=== PATIENT | female | born 1945 | race Caucasian/White ===

== ENCOUNTER → 2020-09-02 16:05 | Outpatient (CLI) | payer MEDICARE, SELFPAY ==
[2020-09-02] MEDS: EPOETIN ALFA-EPBX 40,000 UNIT/ML VIAL 40000 UNIT SUBCUT (15:40)
== END ==
PROVIDERS: Referring Provider Internal Medicine Hematology & Oncology; Visit Provider Internal Medicine Hematology & Oncology
DX: Z51.11 Encounter for antineoplastic chemotherapy (principal); C90.00 Multiple myeloma not having achieved remission; N18.9 Chronic kidney disease, unspecified; D63.1 Anemia in chronic kidney disease; M81.0 Age-related osteoporosis without current pathological fracture
CPT/HCPCS: 80053; 82232; 82784; 83615; 83883; 84155; 84165; 85025; 86334; 96372; 96401; 99204; 99214; J9041; Q5106

== ENCOUNTER → 2020-09-16 12:02 | Outpatient (CLI) | payer MEDICARE, SELFPAY ==
[2020-09-16] MEDS: EPOETIN ALFA-EPBX 40,000 UNIT/ML VIAL 40000 UNIT SUBCUT (12:24)
== END ==
PROVIDERS: Referring Provider Internal Medicine Hematology & Oncology; Visit Provider Internal Medicine Hematology & Oncology
DX: Z51.11 Encounter for antineoplastic chemotherapy (principal); C90.00 Multiple myeloma not having achieved remission; N18.9 Chronic kidney disease, unspecified; D63.1 Anemia in chronic kidney disease
CPT/HCPCS: 96372; 96401; J9041; Q5106

== ENCOUNTER → 2020-10-28 09:35 | Outpatient (CLI) | payer MEDICARE, SELFPAY ==
[2020-10-28] MEDS: EPOETIN ALFA-EPBX 40,000 UNIT/ML VIAL 40000 UNIT SUBCUT (10:02)
== END ==
PROVIDERS: Referring Provider Internal Medicine Hematology & Oncology; Visit Provider Internal Medicine Hematology & Oncology
DX: Z51.11 Encounter for antineoplastic chemotherapy (principal); C90.01 Multiple myeloma in remission; N18.9 Chronic kidney disease, unspecified; D63.1 Anemia in chronic kidney disease; M81.0 Age-related osteoporosis without current pathological fracture
CPT/HCPCS: 96372; 96401; 99214; J9041; Q5106

== ENCOUNTER → 2020-11-11 14:36 | Outpatient (CLI) | payer MEDICARE, SELFPAY ==
[2020-11-11] MEDS: EPOETIN ALFA-EPBX 40,000 UNIT/ML VIAL 40000 UNIT SUBCUT (14:48)
== END ==
PROVIDERS: Referring Provider Internal Medicine Hematology & Oncology; Visit Provider Internal Medicine Hematology & Oncology
DX: Z51.11 Encounter for antineoplastic chemotherapy (principal); C90.01 Multiple myeloma in remission; N18.9 Chronic kidney disease, unspecified; D63.1 Anemia in chronic kidney disease
CPT/HCPCS: 96372; 96401; J9041; Q5106

== ENCOUNTER → 2020-11-25 13:39 | Outpatient (CLI) | payer MEDICARE, SELFPAY ==
[2020-11-25] MEDS: EPOETIN ALFA-EPBX 40,000 UNIT/ML VIAL 40000 UNIT SUBCUT (14:11)
== END ==
PROVIDERS: Visit Provider Internal Medicine Hematology & Oncology
DX: Z51.11 Encounter for antineoplastic chemotherapy (principal); C90.01 Multiple myeloma in remission; N18.9 Chronic kidney disease, unspecified; D63.1 Anemia in chronic kidney disease; M81.0 Age-related osteoporosis without current pathological fracture
CPT/HCPCS: 96372; 96401; 99214; J9041; M1145; Q5106

== ENCOUNTER → 2020-12-09 13:29 | Outpatient (CLI) | payer MEDICARE, SELFPAY ==
[2020-12-09 13:58] VITALS: BP 145/65; PULSE 73; RESP 16; TEMP 36.5; O2SAT 98
== END ==
PROVIDERS: Visit Provider Internal Medicine Hematology & Oncology
DX: C90.01 Multiple myeloma in remission (principal); N18.9 Chronic kidney disease, unspecified; D63.1 Anemia in chronic kidney disease
CPT/HCPCS: 96401

== ENCOUNTER → 2020-12-16 15:30 | Outpatient (CLI) | payer MEDICARE, SELFPAY ==
[2020-12-16] MEDS: COVID-19 VACC #1, MRNA(MOD) 100 MCG/0.5 ML VIAL IM (15:36)
== END ==
PROVIDERS: Visit Provider Internal Medicine
DX: Z23 Encounter for immunization (principal)
CPT/HCPCS: 0011A; 91301

== ENCOUNTER → 2020-12-23 15:06 | Outpatient (CLI) | payer MEDICARE, SELFPAY ==
[2020-12-23] MEDS: EPOETIN ALFA-EPBX 40,000 UNIT/ML VIAL 40000 UNIT SUBCUT (15:54)
== END ==
PROVIDERS: Referring Provider Internal Medicine Hematology & Oncology; Visit Provider Internal Medicine Hematology & Oncology
DX: Z51.11 Encounter for antineoplastic chemotherapy (principal); C90.01 Multiple myeloma in remission; N18.9 Chronic kidney disease, unspecified; D63.1 Anemia in chronic kidney disease; M81.0 Age-related osteoporosis without current pathological fracture
CPT/HCPCS: 96372; 96401; 99214; J9041; Q5106

== ENCOUNTER → 2021-01-06 12:58 | Outpatient (CLI) | payer MEDICARE, SELFPAY ==
[2021-01-06 13:47] VITALS: BP 144/75; PULSE 78; RESP 18; TEMP 37; O2SAT 99
== END ==
PROVIDERS: Referring Provider Internal Medicine Hematology & Oncology; Visit Provider Internal Medicine Hematology & Oncology
DX: C90.01 Multiple myeloma in remission (principal); N18.9 Chronic kidney disease, unspecified; D63.1 Anemia in chronic kidney disease

== ENCOUNTER → 2021-01-13 15:24 | Outpatient (CLI) | payer MEDICARE, SELFPAY ==
[2021-01-13] MEDS: COVID-19 VACC #2, MRNA(MOD) 100 MCG/0.5 ML VIAL IM (15:35)
== END ==
PROVIDERS: Visit Provider Internal Medicine
DX: Z23 Encounter for immunization (principal)
CPT/HCPCS: 0012A; 91301

== ENCOUNTER → 2021-01-19 13:09 | Outpatient (CLI) | payer MEDICARE, SELFPAY ==
[2021-01-19] MEDS: EPOETIN ALFA-EPBX 40,000 UNIT/ML VIAL 40000 UNIT SUBCUT (14:28)
== END ==
PROVIDERS: Referring Provider Internal Medicine Hematology & Oncology; Visit Provider Internal Medicine Hematology & Oncology
DX: Z51.11 Encounter for antineoplastic chemotherapy (principal); C90.01 Multiple myeloma in remission; N18.9 Chronic kidney disease, unspecified; D63.1 Anemia in chronic kidney disease
CPT/HCPCS: 96372; 96401; J9041; Q5106

== ENCOUNTER → 2021-02-02 13:17 | Outpatient (CLI) | payer MEDICARE, SELFPAY ==
[2021-02-02 13:43] VITALS: BP 135/72; PULSE 83; RESP 18; TEMP 37.4; O2SAT 98
[2021-02-02] MEDS: EPOETIN ALFA-EPBX 40,000 UNIT/ML VIAL 40000 UNIT SUBCUT (14:27)
== END ==
PROVIDERS: Referring Provider Internal Medicine Hematology & Oncology; Visit Provider Internal Medicine Hematology & Oncology
DX: Z51.11 Encounter for antineoplastic chemotherapy (principal); C90.01 Multiple myeloma in remission; N18.9 Chronic kidney disease, unspecified; D63.1 Anemia in chronic kidney disease
CPT/HCPCS: 96372; 96401; J9041; Q5106

== ENCOUNTER → 2021-02-14 13:05 | Outpatient (CLI) | payer MEDICARE, SELFPAY ==
[2021-02-14 13:27] VITALS: BP 132/69; PULSE 81; RESP 18; TEMP 36.6; O2SAT 100
[2021-02-14] MEDS: EPOETIN ALFA-EPBX 40,000 UNIT/ML VIAL 40000 UNIT SUBCUT (13:47)
== END ==
PROVIDERS: Referring Provider Internal Medicine Hematology & Oncology; Visit Provider Internal Medicine Hematology & Oncology
DX: Z51.11 Encounter for antineoplastic chemotherapy (principal); C90.01 Multiple myeloma in remission; N18.9 Chronic kidney disease, unspecified; D63.1 Anemia in chronic kidney disease
CPT/HCPCS: 36415; 80053; 82232; 82784; 83615; 83883; 84155; 84165; 85025; 86334; 96372; 96401; J9041; Q5106

== ENCOUNTER 2021-02-17 18:34 | Emergency (ER) | payer MEDICARE, SELFPAY ==
[2021-02-17] VITALS (7 sets, daily range): BP systolic 137–184; BP diastolic 65–85; PULSE 90–123; RESP 14–29; TEMP 36.7; O2SAT 90–100; BMI 51.8
--- NOTE | 2021-02-17 19:22 | ED_ITS ---
HPI - Dental/Oral General Chief complaint: Dental/Oral Stated complaint: states infection, left side face, finished antibio Time Seen by Provider: 02/17/21 19:20 Source: patient Mode of arrival: Ambulatory Limitations: no limitations History of Present Illness HPI Narrative: This is a 76-year-old female comes to the emergency department with complaint of left-sided facial swelling. Patient states she has had an i nfection in her tooth. Patient states that she has had 3 episodes. She was on antibiotics after seeing a urgent care. She saw a dentist who referred her to a specialist and had a temporary tooth placed with plan for root canal on last 1 week ago. Patient states the next day she developed significant swelling of the cheek and face. She states they started her on oral clindamycin. She has continued to have improvement but she still has swelling and several small lumps that she can feel in her cheek. She is on her last doses of medication and will have her very last dose of clindamycin tomorrow. Patient has been afebrile. She states her pain and swelling have been improving as well as the redness. She denies any headaches, no neck pain. No chest pain or shortness of breath. No nausea or vomiting. No other GI or urinary symptoms. Patient arrives today because she was concerned because she is going to run out antibiotics. She does have a history of multiple myeloma she has chronic kidney disease and was anticipated have dialysis. She had a fistula placed but never started dialysis as her renal function improved during her treatment for multiple myeloma. Her home is in [place] and she spends her choi here locally. She does not have a local primary care but does in [place]. Related Data Home Medications Medication Instructions Recorded Confirmed calcitriol 0.25 mcg PO 3XW 09/02/20 12/23/20 lisinopril 2.5 mg PO DAILY 09/02/20 12/23/20 sodium bicarbonate 650 mg PO DAILY 09/02/20 12/23/20 Previous Rx's Medication Instructions Recorded acyclovir 400 mg PO DAILY #90 tab 09/30/20 clindamycin HCl 300 mg PO QID #28 cap 02/17/21 Allergies Allergy/AdvReac Type Severity Reaction Status Date / Time Penicillins Allergy Unknown Verified 11/21/20 10:58 Sulfa (Sulfonamide Allergy Unknown Verified 11/21/20 10:58 Antibiotics) Review of Systems Review of Systems ROS Unobtainable: All systems reviewed & are unremarkable except as noted in HPI and below Patient History Medical History A-V fistula Chronic kidney disease Multiple myeloma Surgical History H/O hernia repair Family History (Updated 09/02/20 @ 23:04 by Bhavna José MD) Other Alzheimer disease Social History Smoking Status: Former smoker alcohol intake: current (Rarely) substance use type: marijuana (Occasionally.) Smoking Status: Former smoker Exam Narrative Exam Narrative: GEN: well nourished, well appearing elderly female, alert and oriented x 3, patient appears to be in mild distress. HEENT: Atraumatic, pupils are equal round reactive to light, extraocular movements are intact, nares are clear, TMs are clear with no fluid, there is no conjunctival pallor. Throat is clear without any exudates, erythema, tonsillar enlargement or uvular deviation, patient does have moderate swelling of the left cheek, some mild erythema in comparison to the right. I am unable to visualize any areas of fluctuance but I am able to palpate some areas of induration in the cheek that are <0.5cm. I am not able to visualize these along the gumline itself. The area surrounding the teeth is not swollen or erythematous. They are nontender to palpation. HEART: Regular rate and rhythm without murmur, clicks, rubs. LUNGS:Lungs clear to auscultation, no wheezes, rales, crackles, chest moves symmetrically ABD:bowel sounds normal, soft, non-tender, no guarding, rebound, rigidity, no masses noted, no hepatosplenomegaly :No CVA tenderness MSCL: Non-tender, no muscle atrophy, muscles strength 5/5 upper and lower extremities, full range of motion, normal gait NEURO:CN 2-12 intact, sensation normal SKIN: see above. Initial Vital Signs Initial Vital Signs: Vital Signs Temperature 98.0 F 02/17/21 18:57 Pulse Rate 104 H 02/17/21 18:57 Respiratory Rate 14 02/17/21 18:57 Blood Pressure 184/85 H 02/17/21 18:57 Pulse Oximetry 99 02/17/21 18:57 Course Orders Ordered: ED Orders 02/17/21 19:53 CT facial bones wo con Stat 02/17/21 20:00 Basic Metabolic Panel Stat Complete Blood Count AUTO DIFF Stat Lactate (Lactic Acid) Stat Troponin & CK Cardiac Panel Stat 02/17/21 20:24 Blood Culture Stat Discontinued Medications Sodium Chloride (Normal Saline 0.9%) 1,000 mls @ 150 mls/hr IV CONT TOM Last Admin: 02/17/21 20:06 Dose: 150 mls/hr Documented by: ARETHA Reevaluation(s) Reevaluation #1: patient and I discussed her findings today. Plan to continue her clindamycin for a longer period of time she has had 7 days total. Give her 2nd prescription have her follow up with her dental specialist tomorrow. She has penicillin allergy she has a rash. She is unsure if she has an allergy to amoxicillin or Augmentin. She describes what sounds like a dystonic reaction to sulfa medication. These allergies somewhat restrict her medication options and considering she has been continuing to improve with her current antibiotics I would extend her treatment at this time. Time: 21:07 Vital Signs Vital signs: Vital Signs - 8 hr 02/17/21 18:57 02/17/21 19:39 02/17/21 20:00 Temperature 98.0 F Pulse Rate 104 H 123 H 119 H Respiratory Rate 14 29 H 21 Blood Pressure 184/85 H Pulse Oximetry 99 98 98 02/17/21 20:01 02/17/21 20:38 02/17/21 20:39 Temperature Pulse Rate 116 H 106 H 90 Respiratory Rate 17 23 Blood Pressure 144/67 H 147/65 H Pulse Oximetry 96 90 L 98 02/17/21 21:19 Temperature Pulse Rate 97 H Respiratory Rate 24 Blood Pressure 137/65 Pulse Oximetry 100 MDM - Dental/Oral Lab Data Attestation: I reviewed the patient's lab results. Result diagrams: 02/17/21 20:00 02/17/21 20:00 Labs: Lab Results 02/17/21 02/17/21 02/17/21 Range/Units 20:00 20:00 20:00 WBC 5.8 (4.5-11.0) X10^3/uL RBC 3.05 L (4.0-5.2) X10^6/uL Hgb 9.8 L (12.0-16.0) g/dL Hct 30.7 L (36-46) % MCV 100.7 H (80-100) fL MCH 32.1 (26-34) PG MCHC 31.9 (30-36) % RDW 16.9 H (11.6-14.8) % Plt Count 244 (150-400) X10^3/uL Neut % (Auto) 76.5 H (50-75) % Lymph % (Auto) 6.4 L (25-40) % [place] % (Auto) 16.1 H (3-14) % Eos % (Auto) 0.4 L (2-4) % Baso % (Auto) 0.6 (0-2) % Neut # (Auto) 4500 (2133-1545) /uL Lymph # (Auto) 400 L (0382-3088) /uL [place] # (Auto) 900 (0-900) /uL Eos # (Auto) 0 (0-450) /uL Baso # (Auto) 0 (0-100) /uL Sodium 139 (137-145) mmol/L Potassium 5.1 (3.4-5.1) mmol/L Chloride 108 H (98-107) mmol/L Carbon Dioxide 23 (22-32) mmol/L BUN 57 H (7-17) mg/dL Creatinine 2.53 H (0.52-1.04) mg/dL Estimated GFR 18.6 L (>60) mL/min BUN/Creatinine Ratio 22.5 H (6-22) Glucose 108 (80-110) mg/dL Lactate 0.8 (0.7-2.1) mmol/L Calcium 9.4 (8.4-10.2) mg/dL Total Creatine Kinase (30-135) U/L CK-MB (CK-2) CK-MB (CK-2) Rel Index Troponin I (0.01-0.034) ng/mL 02/17/21 Range/Units 20:00 WBC (4.5-11.0) X10^3/uL RBC (4.0-5.2) X10^6/uL Hgb (12.0-16.0) g/dL Hct (36-46) % MCV (80-100) fL MCH (26-34) PG MCHC (30-36) % RDW (11.6-14.8) % Plt Count (150-400) X10^3/uL Neut % (Auto) (50-75) % Lymph % (Auto) (25-40) % [place] % (Auto) (3-14) % Eos % (Auto) (2-4) % Baso % (Auto) (0-2) % Neut # (Auto) (9583-1482) /uL Lymph # (Auto) (2573-6518) /uL [place] # (Auto) (0-900) /uL Eos # (Auto) (0-450) /uL Baso # (Auto) (0-100) /uL Sodium (137-145) mmol/L Potassium (3.4-5.1) mmol/L Chloride (98-107) mmol/L Carbon Dioxide (22-32) mmol/L BUN (7-17) mg/dL Creatinine (0.52-1.04) mg/dL Estimated GFR (>60) mL/min BUN/Creatinine Ratio (6-22) Glucose (80-110) mg/dL Lactate (0.7-2.1) mmol/L Calcium (8.4-10.2) mg/dL Total Creatine Kinase 67 (30-135) U/L CK-MB (CK-2) TNP CK-MB (CK-2) Rel Index TNP Troponin I 0.013 (0.01-0.034) ng/mL Urine Dip Bedside Urine Glucose Negative Bedside Urine Bilirubin - Negative Bedside Urine Ketone - Negative Urine Specific [place] 1.015 Bedside Urine Occult Blood - Negative Bedside Urine pH 6.0 Bedside Urine Protein +/- 15 Bedside Urine Urobilinogen - Negative Bedside Urine Nitrite - Negative Bedside Urine Leukocytes - Negative Esterase Imaging Data CT facial bones.: Radiologist's Impression: [address] [id number] Scan ReportSigned Patient: Sangita Elliott CMR#: [id number]: 7Acct:[id number]/Sex: 76 / FDate of Service: 02/17/21Loc: EDAccession Number: [id number] Procedure: CT facial bones wo con Ordering Provider: Lottie Sr D.O. PROCEDURE: CT FACIAL BONES WO CON INDICATIONS: left facial swelling, on abx, recent dental procedure TECHNIQUE: Noncontrast 2.5 mm thick axial images acquired from the mandible through the frontal sinuses, with coronal and sagittal reformatting. For radiation dose reduction, the following was used: automated exposure control, adjustment of mA and/or kV according to patient size. COMPARISON: None. FINDINGS: Image quality: Degraded by beam hardening artifact related to extensive metallic dental hardware. Diagnostic sensitivity of study for soft tissue pathology is decreased due to lack of intravenous contrast. Bones and teeth: Orbital marie are intact. Sinus marie show no fracture or deformity. Nasal bones and septum are intact. Visualized portions of the mandible demonstrate no fractures or subluxation. Zygomatic arches are intact. Pterygoid plates are intact. Visualized portions of the skull base and auditory canals are intact. Sinuses: Mild mucosal thickening noted in the right maxillary sinus. Mastoid air cells are aerated. Soft tissues: No edema, masses, or fluid collections. No enlarged lymph nodes. No soft tissue lacerations or debris. Vascular: Visualized vascular structures appear normal in the absence of contrast. Bony vascular foramina and canals are intact. IMPRESSION: 1. Image quality degraded by beam hardening artifact related to extensive metallic dental hardware. Diagnostic sensitivity of study for soft tissue pathology diminished secondary to lack of intravenous contrast. 2. No definite abscess within limitations of the study. 3. No definite soft tissue gas within limitations of the study. Dictated by: Lani He MD, PhD on 02/17/2021 at 20:22 Approved by: Lani He MD, PhD on 02/17/2021 at 20:26 ECG Data Attestation: I personally reviewed and interpreted this ECG as follows: Prior ECG tracings: not available for review Interpretation: Sinus tachycardia rate of 122 WV interval 148 QRS 100 and QTC 456. Patient has no acute EKG changes appreciated incomplete right bundle branch block. MDM Narrative Medical decision making narrative: Pleasant 76-year-old female comes in with complaint of swelling and discomfort of the left side of face. Patient is just finishing an antibiotic clindamycin. She had had dental work done and developed increased swelling shortly thereafter. She has chronically had issues on and off several times. Because of recurrent and prolonged symptoms and history of multiple myeloma CT imaging was obtained and does not show any obvious infection although there is some artifact that may make it difficult to evaluate some areas. Patient was tachycardic initially on arrival but improved quickly with some mild fluids. She states she has been trying to drink fluids but has not been ingesting much solids. Appears stable at 9.8, she does have a leftward shift. Platelets are appropriate. Patient's renal function is 2.53 today she was 2.87 on 02/14/21 and patient does not seem surprised by these numbers. Troponin is negative with no acute EKG changes. Blood cultures were obtained and are pending. Plan to continue clindamycin at this time as it seems to be helpful patient's notices significant improvement. She is also encouraged to call tomorrow to follow up with her dental specialist for any additional instructions and repeat evaluation. Discharge Plan Departure Patient Disposition: Home Clinical Impression: Cellulitis of cheek Instructions: DI for Cellulitis -- Adult Activity Restrictions/Additional Instructions: Follow-up with your dental specialist, call tomorrow. You do have blood cultures pending, if these are positive you will receive a call from the emergency department asking you to return. You have had a a prescription for clindamycin sent to [facility] in [place]. Please return for fevers, increasing swelling, redness, signs of worsening infection, swelling of her tongue, mouth her airway, headaches, chest pain, shortness of breath, persistent vomiting, lightheadedness or passing out or other new or concerning symptoms. Prescriptions: New clindamycin HCl 300 mg capsule 300 mg PO QID Qty: 28 RF: 0 No Action sodium bicarbonate 650 mg Tablet 650 mg PO DAILY RF: 0 lisinopril 2.5 mg Tablet 2.5 mg PO DAILY RF: 0 calcitriol 0.25 mcg Capsule 0.25 mcg PO 3XW RF: 0 acyclovir 400 mg Tablet 400 mg PO DAILY Qty: 90 RF: 3 Referrals: Miscellaneous,Doctor, [Primary Care Provider] -
--- NOTE | 2021-02-17 19:53 | DI.CT.S_ITS ---
PROCEDURE: CT FACIAL BONES WO CON INDICATIONS: left facial swelling, on abx, recent dental procedure TECHNIQUE: Noncontrast 2.5 mm thick axial images acquired from the mandible through the frontal sinuses, with coronal and sagittal reformatting. For radiation dose reduction, the following was used: automated exposure control, adjustment of mA and/or kV according to patient size. COMPARISON: None. FINDINGS: Image quality: Degraded by beam hardening artifact related to extensive metallic dental hardware. Diagnostic sensitivity of study for soft tissue pathology is decreased due to lack of intravenous contrast. Bones and teeth: Orbital marie are intact. Sinus marie show no fracture or deformity. Nasal bones and septum are intact. Visualized portions of the mandible demonstrate no fractures or subluxation. Zygomatic arches are intact. Pterygoid plates are intact. Visualized portions of the skull base and auditory canals are intact. Sinuses: Mild mucosal thickening noted in the right maxillary sinus. Mastoid air cells are aerated. Soft tissues: No edema, masses, or fluid collections. No enlarged lymph nodes. No soft tissue lacerations or debris. Vascular: Visualized vascular structures appear normal in the absence of contrast. Bony vascular foramina and canals are intact. IMPRESSION: 1. Image quality degraded by beam hardening artifact related to extensive metallic dental hardware. Diagnostic sensitivity of study for soft tissue pathology diminished secondary to lack of intravenous contrast. 2. No definite abscess within limitations of the study. 3. No definite soft tissue gas within limitations of the study. Dictated by: Lani He MD, PhD on 02/17/2021 at 20:22 Approved by: Lani He MD, PhD on 02/17/2021 at 20:26
[2021-02-17 20:04] LABS: Add Manual Diff / Slide Review NO; Basophils Absolute Auto 0 /uL (0-100); Basophils Percent Auto 0.6 % (0-2); Eosinophils Absolute Auto 0 /uL (0-450); Eosinophils Percent Auto 0.4 % (2-4); Hematocrit 30.7 % (36-46); Hemoglobin 9.8 g/dL (12.0-16.0); Lymphocytes Absolute Auto 400 /uL (1100-4500); Lymphocytes Percent Auto 6.4 % (25-40); Mean Corpuscular HGB Conc 31.9 % (30-36); Mean Corpuscular Hemoglobin 32.1 PG (26-34); Mean Corpuscular Volume 100.7 fL (80-100); Monocytes Absolute Auto 900 /uL (0-900); Monocytes Percent Auto 16.1 % (3-14); Neutrophils Absolute Auto 4500 /uL (1500-7000); Neutrophils Percent Auto 76.5 % (50-75); Platelet Count 244 X10^3/uL (150-400); Red Blood Cell Count 3.05 X10^6/uL (4.0-5.2); Red Cell Distribution Width 16.9 % (11.6-14.8); White Blood Cell Count 5.8 X10^3/uL (4.5-11.0)
[2021-02-17] MEDS: SODIUM CHLORIDE 0.9% 1,000 ML 150 ML IV (20:06)
[2021-02-17 20:16] LABS: BUN Creatinine Ratio 22.5 (6-22); Blood Urea Nitrogen 57 mg/dL (7-17); Calcium 9.4 mg/dL (8.4-10.2); Carbon Dioxide 23 mmol/L (22-32); Chloride 108 mmol/L (98-107); Creatine Kinase 67 U/L (30-135); Estimated Glomerular Filt Rate 18.6 mL/min (>60); Glucose 108 mg/dL (80-110); HEMOLYSIS < 15 (0-50); Potassium 5.1 mmol/L (3.4-5.1); Sodium 139 mmol/L (137-145)
[2021-02-17 20:17] LABS: Lactate (Lactic Acid) 0.8 mmol/L (0.7-2.1)
[2021-02-17 20:28] LABS: Troponin I 0.013 ng/mL (0.01-0.034)
--- NOTE | 2021-03-03 12:44 | PC.NURSE ---
Late entry. one liter normal saline infused, stopped at 2121
== END 2021-02-17 21:22 | disposition home or self-care (01) ==
PROVIDERS: Emergency Provider Emergency Medicine
DX: L03.211 Cellulitis of face (principal); C90.00 Multiple myeloma not having achieved remission
CPT/HCPCS: 36415; 70486; 80048; 81003; 82550; 83605; 84484; 85025; 87040; 93005; 96360; 99284

== ENCOUNTER → 2021-02-28 12:43 | Outpatient (CLI) | payer MEDICARE, SELFPAY | PROVIDERS: Referring Provider Internal Medicine Hematology & Oncology; Visit Provider Internal Medicine Hematology & Oncology | DX: C90.01 Multiple myeloma in remission (principal); N18.9 Chronic kidney disease, unspecified; D63.1 Anemia in chronic kidney disease ==

== ENCOUNTER → 2022-12-25 11:42 | Outpatient (CLI) | payer MEDICARE, SELFPAY ==
--- NOTE | 2022-12-25 | DI.MG.S_ITS ---
BILATERAL DIGITAL SCREENING MAMMOGRAM 3D/2D WITH CAD: 12/25/2022 CLINICAL: Routine screening. No prior exams were available for comparison. Both breasts are heterogeneously dense, which may obscure small masses (category c / 51-75% glandular tissue). Current study was also evaluated with a Computer Aided Detection (CAD) system. There is possible architectural distortion in the right breast at 12 o'clock posterior depth. No other significant masses, calcifications, or other findings are seen in either breast. IMPRESSION: INCOMPLETE: NEEDS ADDITIONAL IMAGING EVALUATION The possible architectural distortion in the right breast is indeterminate. Additional views with possible ultrasound are recommended. Based on the Tyrer Cuzick model (a risk assessment model) the patient's lifetime risk is 4.6% and her 10 year risk is 4.6%. According to the ACR, ACS, and NCCN guidelines, an annual breast MRI exam along with mammogram is recommended if the patient's lifetime risk is 20% or greater. This exam was interpreted at Station ID: [id number]. NOTE: For mammograms, a report in lay terms will be sent to the patient. Approximately 15% of breast malignancies will not be visualized mammographically. In the management of a palpable breast mass, a negative mammogram must not discourage biopsy of a clinically suspicious lesion. Electronically Signed By: Sydney [email or web address]:12/25/2022 15:34:52 letter sent: Additional Imaging Needed ACR BI-RADS Category 0: Incomplete [id number]
== END ==
PROVIDERS: Referring Provider Internal Medicine Hematology & Oncology; Visit Provider Internal Medicine Hematology & Oncology
DX: Z12.31 Encounter for screening mammogram for malignant neoplasm of breast (principal)
CPT/HCPCS: 77063; 77067

== ENCOUNTER 2023-02-26 15:15 | Outpatient (RCR) | payer MEDICARE, SELFPAY ==
--- NOTE | 2022-11-27 19:26 | PT.OIE ---
Current Diagnoses Mixed incontinence (11/27/22) Cystocele, unspecified (11/27/22) Other female genital prolapse (11/27/22) Past Medical History (Last Reviewed 02/17/21 @ 19:59 by Lottie Sr DO) A-V fistula Chronic kidney disease Multiple myeloma Past Surgical History (Last Reviewed 02/17/21 @ 19:59 by Lottie Sr DO) H/O hernia repair Visit Care Team Role Provider Type Attending Provider Family Provider Referring Provider Specialty: Address: Phone: Fax: Email: Physical Therapy Initial Evaluation PT-OP-A Visit Information Start: 11/20/22 17:09 Freq: Status: Active Protocol: Document 11/27/22 14:26 LRN (Rec: 11/27/22 19:16 LRN [id number]) Out-Patient Physical Therapy Visit Information Visit Information Visit Type Initial Evaluation Visit Start Time 14:30 Visit Stop Time 15:25 Total Visit Minutes 55 Visit Number 1 Evaluation Information Evaluation Date 11/27/22 Precautions Precautions Pt reports: 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 Records indicate [facility] @ [facility], pt wears L knee brace-symptomatic DJD. PT-OP-B Current Condition Start: 11/20/22 17:09 Freq: Status: Active Protocol: Document 11/27/22 14:26 LRN (Rec: 11/27/22 19:16 LRN [id number]) Current Condition History of Current Condition Onset Date 04/2022 Current Complaints Feels something bulging in perineum, urinary leakage. History of Current Condition Pt has urinary incontinence and sometimes feels a bulge in her pelvic floor region. Pt reports she wears a maxipad due to large amount of urinary leakage which can result in wetting of underwear. She uses 1 maxi-pad daily. She is currently waiting for test results for possible UTI. Pt reports she leaks with activity/exercise, walking to toilet and a strong urge and can delay 11-30 minutes. She occasionally has a feeling of falling out. She reports drinking 4 glasses of fluid daily, 1-2 glasses of caffeinated and 0-1 alcoholic beverages daily. Her trigger is running water. Pt received [facility] PT in [place] and will be returning to [place] in February. Pt is a resident of [place] who snow- birds on [facility] from Aug-February. Pt is taking medication to maintain remission of multiple myeloma for past 8 yrs, which causes her constipation. Pt receives medication injection 1x/month with constipation lasting one day. Prior Treatments and Tests Woman's Health Physical Therapy at [facility] in [place], [place] by Rebeca Hart, PT 07/04/22 to 08/15/22. Future Testing and Treatments Planned Pt is planning on continuing PT on her return to [place]. Treatment Goals Patient/Caregiver Goals Pt goal is to improve PF strength to decrease urinary leakage, learn ex's to prevent urinary leakage. Pt is agreeable to other goals of pt education in self care, hip mobility trunk/core stabilization. Personal Factors Other Personal Factors That May Effect Multiple myeloma injection 1x/ Therapy/Recovery month to keep CA in remission, L ERNIE, Hernia repair PT-OP-C Subjective Start: 11/20/22 17:09 Freq: Status: Active Protocol: Document 11/27/22 14:26 LRN (Rec: 11/27/22 19:16 LRN [id number]) Patient Questionnaires Pelvic Pain and Urgency/Frequency Patient Symptom Scale Pelvic Pain Score 8 PT-OP-I Pelvic Floor Start: 11/20/22 17:09 Freq: Status: Active Protocol: Document 11/27/22 14:26 LRN (Rec: 11/27/22 19:16 LRN [id number]) Pelvic Floor Assessment Urine Pelvic Floor Surgery No Urinary Symptoms Urge Sensation,Prolapse, Falling Out Feeling/Heavy Leakage Size Medium Leakage Cause Exercise,Lifting,Urge Leaks Per Day 1 Voiding Frequency 10x during the day Nocturia 3 Pads Used In 24 Hours 1 Urine Pad Type Maxi Pad Bowel Bowel Symptoms Constipation Other Bowel Symptoms Constipation when taking medication to keep multiple myoloma CA, now in remission. Bowel Movement Frequency 3-6 [place] Stool Chart Comments Stools 3 & 5 except type 1 with her medication 1x/month. Pelvic Clock Pelvic Clock 9-12 Atrophy Pelvic Clock Other Superficial PF muscles: poor to no contraction felt. Prolapse Cystocele Grade 1 Rectocele Grade 2 Contraction Ability Voluntary Contraction Weak Manual Muscle Testing Left 2 Manual Muscle Testing Right 3 Manual Muscle Testing Anterior 0 Manual Muscle Testing Posterior 3 Muscle Endurance (Seconds) 3 Number of Quick Contractions In 10 3 Seconds Comments Pelvic Floor Comments Pt able to hold a PF contraction 10 secs, but strength of contraction decreases after 3 secs. PT-OP-J Posture/Palpation/Skin Start: 11/20/22 17:09 Freq: Status: Active Protocol: Document 11/27/22 14:26 LRN (Rec: 11/27/22 19:16 LRN [id number]) Posture Evaluation Position Standing Head/C-Spine Posture Forward Head Shoulder Posture (R) Elevated Scapula Posture (R) Elevated Pelvis Posture Anteriorly Tilted Comments Posture Comments Slight C-curve of spine w/apex on R. Varus L lower leg. Low L PSIS, R innominate more anteriorly rotated than L. PT-OP-K Range of Motion Start: 11/20/22 17:09 Freq: Status: Active Protocol: Document 11/27/22 14:26 LRN (Rec: 11/27/22 19:16 LRN [id number]) Lumbar Spine Range of Motion Lumbar Spine Active Degrees Testing Position Standing Flexion 80 Extension 10 Rotation Left 20 Rotation Right 25 Lateral Flexion Left 10 Lateral Flexion Right 7 ROM Limitations Soft Tissue Tightness Hip Goniometric Range of Motion Hip Right Passive Testing Position Supine Abduction 27 Internal Rotation 35 External Rotation 35 Left Passive Testing Position Supine Abduction 20 Internal Rotation 15 External Rotation 30 Comments Hx of L ERNIE PT-OP-M Strength Start: 11/20/22 17:09 Freq: Status: Active Protocol: Document 11/27/22 14:26 LRN (Rec: 11/27/22 19:16 LRN [id number]) Hip Strength Hip Manual Muscle Testing Right Flexion (L2) 4+ Good+ Abduction 3+ Fair+ Adduction 5 Normal External Rotation 4+ Good+ Internal Rotation 5 Normal Left Flexion (L2) 3+ Fair+ Abduction 5 Normal Adduction 4 Good External Rotation 3+ Fair+ Internal Rotation 5 Normal PT-OP-Q Treatments Start: 11/20/22 17:09 Freq: Status: Active Protocol: Document 11/27/22 14:26 LRN (Rec: 11/27/22 19:16 LRN [id number]) Self-Care/Home Management Treatment Education Other Education Discussed results of evaluation, goals, and plan of care (POC). Pt agreeable to goals and POC. Pt educated in use of Bladder Diary and I/S in tracking for 1 week. Discussed use of 2 different diaries for tracking of bladder. Activities Self-Care/Home Management Activities Briefly discussed current HEP for pt to continue. PT-OP-T Assessment and Plan Start: 11/20/22 17:09 Freq: Status: Active Protocol: Document 11/27/22 14:26 LRN (Rec: 11/27/22 19:16 LRN [id number]) Physical Therapy Assessment Rehab Potential Rehabilitation Potential Good Evaluation Complexity Number of Personal Factors/Comorbidities 1-2 Number of Body Systems Impaired 4 or More Clinical Presentation at Evaluation Evolving Impairments Impairments Activity Tolerance,Posture,ROM ,Strength Goals Four Impairment Decreased PF & core strength Impairment Strength: Pt not able to maintain stable core with MMT of LE's. PF weakness resulting in urinary incontinence requiring use of 1 maxi-pad daily. Short Term Goal (STG) Pt will be educated in HEP of trunk ROM ex's and PF ex's. STG Duration 01/11/23 Emotionally Impaired Teacher Goal (LTG) Pt will be able to demonstrate a stable core during MMT of LE's and will be able to decrease need for maxi-pad with a decrease in urinary leakage. LTG Duration 02/25/23 Three Impairment Assymetry of hip and trunk mobility Impairment Hip PROM (in deg's): ER: 30 left, 35 right; IR: 15 left, 35 right; AB: 20 left, 27 right. Trunk AROM (in deg's): Rot 20 left, 25 right; Sidebend 10 left, 7 right. Nursing Home Goal (LTG) Improve symmetry of hip and trunk mobility with pt on a self care HEP of stretches and posture education. LTG Duration 02/25/23 Two Impairment Substitution of abdom, gluteal , & hip AD ms to perform a PF contraction. Short Term Goal (STG) Decrease use of associated abdominal/gluteal muscles and pt will be able to perform a PF contraction in abscence of substitute muscles. STG Duration 01/11/23 Nursing Home Goal (LTG) Pt will demonstrate improved PF strength and endurance per SEMG biofeedback. LTG Duration 02/25/23 One Impairment Lacks HEP appropriate for her current level of function Short Term Goal (STG) Pt will be educated in use of proper breathwork for ADLs and transfers and bowel management. STG Duration 01/11/23 Nursing Home Goal (LTG) Pt will be educated in self care HEP of PF, core and hip strengthening ex's for her level of function at time of discharge from physical therapy. LTG Duration 02/25/23 Assessment Summary Assessment Pt presents with urinary incontinence due to PF weakness with pelvic organ prolapse of Grade 1 cystocele and grade 1-2 rectocele. She demonstrates excessive use of substitute gluteal, hip AD & Abdominal muscles to gain a PF contraction and additionally she demonstrates breath holding with PF contractions. PF weakness may be exacerbated by her postural changes from neutral. The pt has decreased hip and trunk mobility, decreased hip strength and mildly decreased core stability. The pt will benefit from skilled physical therapy to achieve the above stated goals. Physical Therapy Plan Frequency and Duration Frequency of Treatment 1x/Week Plan of Care Start Date 11/27/22 Plan of Care End Date 02/25/23 Therapeutic Interventions Therapeutic Interventions Home Exercise Program,Manual Therapy,Neuromuscular Re- education,Patient/Caregiver Education,Self-Care/Home Management,Soft Tissue Mobilization,Therapeutic Activities,Therapeutic Exercises Next Visit Focus/Plan Next Note Type Treatment Note Next Visit Plan Note: Pt receiving monthly injections to keep multiple myeloma in remission. Assess bladder diary and bowel involvement with recommendations as appropriate . Review proper hydration levels. Education: PF contractions in isolation of substitute muscles, coordination of proper breaths with ADLs, body mechanics and exercise, bowel management. Ex: Trunk: rot L, SB R stretches & TA/core (rot) strengthening; Hip stretch (L AB, ?ER/IR-per ERNIE).
--- NOTE | 2022-12-11 14:07 | PT.OTN ---
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 Records indicate [facility] @ [facility], pt wears L knee brace-symptomatic DJD. PT-OP-B Current Condition Start: 11/20/22 17:09 Freq: Status: Active Protocol: Document 11/27/22 14:26 LRN (Rec: 11/27/22 19:16 LRN [id number]) Current Condition History of Current Condition Onset Date 04/2022 Current Complaints Feels something bulging in perineum, urinary leakage. History of Current Condition Pt has urinary incontinence and sometimes feels a bulge in her pelvic floor region. Pt reports she wears a maxipad due to large amount of urinary leakage which can result in wetting of underwear. She uses 1 maxi-pad daily. She is currently waiting for test results for possible UTI. Pt reports she leaks with activity/exercise, walking to toilet and a strong urge and can delay 11-30 minutes. She occasionally has a feeling of falling out. She reports drinking 4 glasses of fluid daily, 1-2 glasses of caffeinated and 0-1 alcoholic beverages daily. Her trigger is running water. Pt received Women's Health PT in [place] and will be returning to [place] in February. Pt is a resident of [place] who [place]- [place] on [facility] from Aug-February. Pt is taking medication to maintain remission of multiple myeloma for past 8 yrs, which causes her constipation. Pt receives medication injection 1x/month with constipation lasting one day. Prior Treatments and Tests Woman's Health Physical Therapy at [facility] in [place], [place] by Rebeca Hart, PT 07/04/22 to 08/15/22. Future Testing and Treatments Planned Pt is planning on continuing PT on her return to [place]. Treatment Goals Patient/Caregiver Goals Pt goal is to improve PF strength to decrease urinary leakage, learn ex's to prevent urinary leakage. Pt is agreeable to other goals of pt education in self care, hip mobility trunk/core stabilization. Personal Factors Other Personal Factors That May Effect Multiple myeloma injection 1x/ Therapy/Recovery month to keep CA in remission, L ERNIE, Hernia repair PT-OP-C Subjective Start: 11/20/22 17:09 Freq: Status: Active Protocol: Document 12/11/22 13:01 LRN (Rec: 12/11/22 14:05 LRN [id number]) OP-PT Subjective Patient Comments Patient Comments States she always leaks with coughing/sneezing and sometimes can't make it to bathroom in time. States where she pees she has a feeling of discomfort. Sometimes has an odd feeling with or without an urge. Was told to not hold her urine. PT-OP-I Pelvic Floor Start: 11/20/22 17:09 Freq: Status: Active Protocol: Document 11/27/22 14:26 LRN (Rec: 11/27/22 19:16 LRN [id number]) Pelvic Floor Assessment Urine Pelvic Floor Surgery No Urinary Symptoms Urge Sensation,Prolapse, Falling Out Feeling/Heavy Leakage Size Medium Leakage Cause Exercise,Lifting,Urge Leaks Per Day 1 Voiding Frequency 10x during the day Nocturia 3 Pads Used In 24 Hours 1 Urine Pad Type Maxi Pad Bowel Bowel Symptoms Constipation Other Bowel Symptoms Constipation when taking medication to keep multiple myoloma CA, now in remission. Bowel Movement Frequency 3-6 [place] Stool Chart Comments Stools 3 & 5 except type 1 with her medication 1x/month. Pelvic Clock Pelvic Clock 9-12 Atrophy Pelvic Clock Other Superficial PF muscles: poor to no contraction felt. Prolapse Cystocele Grade 1 Rectocele Grade 2 Contraction Ability Voluntary Contraction Weak Manual Muscle Testing Left 2 Manual Muscle Testing Right 3 Manual Muscle Testing Anterior 0 Manual Muscle Testing Posterior 3 Muscle Endurance (Seconds) 3 Number of Quick Contractions In 10 3 Seconds Comments Pelvic Floor Comments Pt able to hold a PF contraction 10 secs, but strength of contraction decreases after 3 secs. PT-OP-J Posture/Palpation/Skin Start: 11/20/22 17:09 Freq: Status: Active Protocol: Document 11/27/22 14:26 LRN (Rec: 11/27/22 19:16 LRN [id number]) Posture Evaluation Position Standing Head/C-Spine Posture Forward Head Shoulder Posture (R) Elevated Scapula Posture (R) Elevated Pelvis Posture Anteriorly Tilted Comments Posture Comments Slight C-curve of spine w/[place] on R. Varus L lower leg. Low L PSIS, R innominate more anteriorly rotated than L. PT-OP-K Range of Motion Start: 11/20/22 17:09 Freq: Status: Active Protocol: Document 11/27/22 14:26 LRN (Rec: 11/27/22 19:16 LRN [id number]) Lumbar Spine Range of Motion Lumbar Spine Active Degrees Testing Position Standing Flexion 80 Extension 10 Rotation Left 20 Rotation Right 25 Lateral Flexion Left 10 Lateral Flexion Right 7 ROM Limitations Soft Tissue Tightness Hip Goniometric Range of Motion Hip Right Passive Testing Position Supine Abduction 27 Internal Rotation 35 External Rotation 35 Left Passive Testing Position Supine Abduction 20 Internal Rotation 15 External Rotation 30 Comments Hx of L ERNIE PT-OP-M Strength Start: 11/20/22 17:09 Freq: Status: Active Protocol: Document 11/27/22 14:26 LRN (Rec: 11/27/22 19:16 LRN [id number]) Hip Strength Hip Manual Muscle Testing Right Flexion (L2) 4+ Good+ Abduction 3+ Fair+ Adduction 5 Normal External Rotation 4+ Good+ Internal Rotation 5 Normal Left Flexion (L2) 3+ Fair+ Abduction 5 Normal Adduction 4 Good External Rotation 3+ Fair+ Internal Rotation 5 Normal PT-OP-Q Treatments Start: 11/20/22 17:09 Freq: Status: Active Protocol: Document 12/11/22 13:01 LRN (Rec: 12/11/22 14:05 LRN [id number]) Self-Care/Home Management Treatment Education Other Education Reviewed Bladder dairy and discussed fluid intake (AM/PM) , bowel movement frequency, & nighttime voiding frequency. Pt education and lengthy discussion of how to have Bowel movements. bowel movements without holding breath and discussed squatty potty, with handout issued for squatty potty. Pt lengthy education and discussion in Urinary urge technique with handout issued. Pt education proper vulvar and perineal care with handout issued. Pt educated in PF muscles and internal organ positioning, explaning cystocele and rectocele and discussed how this can worsen with decreased bowel mobility and breath holding. Discussed different pads and usage (urine vs menstrual). PT-OP-T Assessment and Plan Start: 11/20/22 17:09 Freq: Status: Active Protocol: Document 12/11/22 13:01 LRN (Rec: 12/11/22 14:05 LRN [id number]) Physical Therapy Assessment Goals Four Impairment Decreased PF & core strength Impairment Strength: Pt not able to maintain stable core with MMT of LE's. PF weakness resulting in urinary incontinence requiring use of 1 maxi-pad daily. Short Term Goal (STG) Pt will be educated in HEP of trunk ROM ex's and PF ex's. STG Duration 01/11/23 Snf Goal (LTG) Pt will be able to demonstrate a stable core during MMT of LE's and will be able to decrease need for maxi-pad with a decrease in urinary leakage. LTG Duration 02/25/23 Three Impairment Assymetry of hip and trunk mobility Impairment Hip PROM (in deg's): ER: 30 left, 35 right; IR: 15 left, 35 right; AB: 20 left, 27 right. Trunk AROM (in deg's): Rot 20 left, 25 right; Sidebend 10 left, 7 right. [place] Goal (LTG) Improve symmetry of hip and trunk mobility with pt on a self care HEP of stretches and posture education. LTG Duration 02/25/23 Two Impairment Substitution of abdom, gluteal , & hip AD ms to perform a PF contraction. Short Term Goal (STG) Decrease use of associated abdominal/gluteal muscles and pt will be able to perform a PF contraction in abscence of substitute muscles. STG Duration 01/11/23 Snf Goal (LTG) Pt will demonstrate improved PF strength and endurance per SEMG biofeedback. LTG Duration 02/25/23 One Impairment Lacks HEP appropriate for her current level of function Short Term Goal (STG) Pt will be educated in use of proper breathwork for ADLs and transfers and bowel management. 12/11/22: Pt education and lengthy discussion of how to have Bowel movements. bowel movements without holding breath and discussed squatty potty. STG Duration 01/11/23 partially met : for bowel education Snf Goal (LTG) Pt will be educated in self care HEP of PF, core and hip strengthening ex's for her level of function at time of discharge from physical therapy. LTG Duration 02/25/23 Assessment Summary Assessment Pt is 77 yo female wtih urinary incontinence due to PF weakness with pelvic organ prolapse of Grade 1 cystocele and grade 1-2 rectocele. She had multiple questions regarding pelvic floor after bladder diary review that were mostly addressed today. Pt will need education in proper breathwork for ADLs and transfers Physical Therapy Plan Frequency and Duration Frequency of Treatment 1x/Week Plan of Care Start Date 11/27/22 Plan of Care End Date 02/25/23 Next Visit Focus/Plan Next Note Type Treatment Note Next Visit Plan ??EMG Biofeedback (no Estim) Note: Pt receiving monthly injections to keep multiple myeloma in remission. Review proper hydration levels of 1/2 body wgt in oz's. Education: coordination of proper breaths with ADLs, body mechanics and exercise. PF contractions in isolation of substitute muscles. Ex: Trunk: rot L, SB R stretches & TA/core (rot) strengthening; Hip stretch (L AB, ?ER/IR-per ERNIE).
--- NOTE | 2022-12-25 16:48 | PT.OTN ---
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 Records indicate [facility] @ [facility], pt wears L knee brace-symptomatic DJD. PT-OP-B Current Condition Start: 11/20/22 17:09 Freq: Status: Active Protocol: Document 11/27/22 14:26 LRN (Rec: 11/27/22 19:16 LRN [id number]) Current Condition History of Current Condition Onset Date 04/2022 Current Complaints Feels something bulging in perineum, urinary leakage. History of Current Condition Pt has urinary incontinence and sometimes feels a bulge in her pelvic floor region. Pt reports she wears a maxipad due to large amount of urinary leakage which can result in wetting of underwear. She uses 1 maxi-pad daily. She is currently waiting for test results for possible UTI. Pt reports she leaks with activity/exercise, walking to toilet and a strong urge and can delay 11-30 minutes. She occasionally has a feeling of falling out. She reports drinking 4 glasses of fluid daily, 1-2 glasses of caffeinated and 0-1 alcoholic beverages daily. Her trigger is running water. Pt received [facility] PT in [place] and will be returning to [place] in February. Pt is a resident of [place] who snow- birds on [facility] from Aug-February. Pt is taking medication to maintain remission of multiple myeloma for past 8 yrs, which causes her constipation. Pt receives medication injection 1x/month with constipation lasting one day. Prior Treatments and Tests Woman's Health Physical Therapy at [facility] in [place], [place] by Rebeca Hart, PT 07/04/22 to 08/15/22. Future Testing and Treatments Planned Pt is planning on continuing PT on her return to [place]. Treatment Goals Patient/Caregiver Goals Pt goal is to improve PF strength to decrease urinary leakage, learn ex's to prevent urinary leakage. Pt is agreeable to other goals of pt education in self care, hip mobility trunk/core stabilization. Personal Factors Other Personal Factors That May Effect Multiple myeloma injection 1x/ Therapy/Recovery month to keep CA in remission, L ERNIE, Hernia repair PT-OP-C Subjective Start: 11/20/22 17:09 Freq: Status: Active Protocol: Document 12/25/22 13:06 LRN (Rec: 12/25/22 16:46 LRN [id number]) OP-PT Subjective Patient Comments Patient Comments States using the urinary delay technique. Being treated for multiple myloma, and is in remission, but not complete remission. Doing maintence chemo injections 1x/month at the first of the month. PT-OP-I Pelvic Floor Start: 11/20/22 17:09 Freq: Status: Active Protocol: Document 11/27/22 14:26 LRN (Rec: 11/27/22 19:16 LRN [id number]) Pelvic Floor Assessment Urine Pelvic Floor Surgery No Urinary Symptoms Urge Sensation,Prolapse, Falling Out Feeling/Heavy Leakage Size Medium Leakage Cause Exercise,Lifting,Urge Leaks Per Day 1 Voiding Frequency 10x during the day Nocturia 3 Pads Used In 24 Hours 1 Urine Pad Type Maxi Pad Bowel Bowel Symptoms Constipation Other Bowel Symptoms Constipation when taking medication to keep multiple myoloma CA, now in remission. Bowel Movement Frequency 3-6 [place] Stool Chart Comments Stools 3 & 5 except type 1 with her medication 1x/month. Pelvic Clock Pelvic Clock 9-12 Atrophy Pelvic Clock Other Superficial PF muscles: poor to no contraction felt. Prolapse Cystocele Grade 1 Rectocele Grade 2 Contraction Ability Voluntary Contraction Weak Manual Muscle Testing Left 2 Manual Muscle Testing Right 3 Manual Muscle Testing Anterior 0 Manual Muscle Testing Posterior 3 Muscle Endurance (Seconds) 3 Number of Quick Contractions In 10 3 Seconds Comments Pelvic Floor Comments Pt able to hold a PF contraction 10 secs, but strength of contraction decreases after 3 secs. PT-OP-J Posture/Palpation/Skin Start: 11/20/22 17:09 Freq: Status: Active Protocol: Document 11/27/22 14:26 LRN (Rec: 11/27/22 19:16 LRN [id number]) Posture Evaluation Position Standing Head/C-Spine Posture Forward Head Shoulder Posture (R) Elevated Scapula Posture (R) Elevated Pelvis Posture Anteriorly Tilted Comments Posture Comments Slight C-curve of spine w/apex on R. Varus L lower leg. Low L PSIS, R innominate more anteriorly rotated than L. PT-OP-K Range of Motion Start: 11/20/22 17:09 Freq: Status: Active Protocol: Document 11/27/22 14:26 LRN (Rec: 11/27/22 19:16 LRN [id number]) Lumbar Spine Range of Motion Lumbar Spine Active Degrees Testing Position Standing Flexion 80 Extension 10 Rotation Left 20 Rotation Right 25 Lateral Flexion Left 10 Lateral Flexion Right 7 ROM Limitations Soft Tissue Tightness Hip Goniometric Range of Motion Hip Right Passive Testing Position Supine Abduction 27 Internal Rotation 35 External Rotation 35 Left Passive Testing Position Supine Abduction 20 Internal Rotation 15 External Rotation 30 Comments Hx of L ERNIE PT-OP-M Strength Start: 11/20/22 17:09 Freq: Status: Active Protocol: Document 11/27/22 14:26 LRN (Rec: 11/27/22 19:16 LRN [id number]) Hip Strength Hip Manual Muscle Testing Right Flexion (L2) 4+ Good+ Abduction 3+ Fair+ Adduction 5 Normal External Rotation 4+ Good+ Internal Rotation 5 Normal Left Flexion (L2) 3+ Fair+ Abduction 5 Normal Adduction 4 Good External Rotation 3+ Fair+ Internal Rotation 5 Normal PT-OP-Q Treatments Start: 11/20/22 17:09 Freq: Status: Active Protocol: Document 12/25/22 13:06 LRN (Rec: 12/25/22 16:46 LRN [id number]) Neuro Re-Education Treatment Other Activities Vaginal EMG Details PF awareness training: baseline, quick flicks, long holds w/vag elect/towel Reps/Duration 38 Comments Discussion needed prior to use of vaginal electrode for EMG biofeedback with no concerns of effect on her mutiple myeloma. Extra time needed for electrode placement and stabilizing in place (w/towel roll) before awareness training/education. Pt was able to improve awareness of her PF contractions and most importantly for relaxation of PF. PT-OP-T Assessment and Plan Start: 11/20/22 17:09 Freq: Status: Active Protocol: Document 12/25/22 13:06 LRN (Rec: 12/25/22 16:46 LRN [id number]) Physical Therapy Assessment Goals Four Impairment Decreased PF & core strength Impairment Strength: Pt not able to maintain stable core with MMT of LE's. PF weakness resulting in urinary incontinence requiring use of 1 maxi-pad daily. Short Term Goal (STG) Pt will be educated in HEP of trunk ROM ex's and PF ex's. STG Duration 01/11/23 Video Recorder Mechanic Goal (LTG) Pt will be able to demonstrate a stable core during MMT of LE's and will be able to decrease need for maxi-pad with a decrease in urinary leakage. LTG Duration 02/25/23 Three Impairment Assymetry of hip and trunk mobility Impairment Hip PROM (in deg's): ER: 30 left, 35 right; IR: 15 left, 35 right; AB: 20 left, 27 right. Trunk AROM (in deg's): Rot 20 left, 25 right; Sidebend 10 left, 7 right. Video Recorder Mechanic Goal (LTG) Improve symmetry of hip and trunk mobility with pt on a self care HEP of stretches and posture education. LTG Duration 02/25/23 Two Impairment Substitution of abdom, gluteal , & hip AD ms to perform a PF contraction. Short Term Goal (STG) Decrease use of associated abdominal/gluteal muscles and pt will be able to perform a PF contraction in abscence of substitute muscles. STG Duration 01/11/23 Senior Care Goal (LTG) Pt will demonstrate improved PF strength and endurance per SEMG biofeedback. LTG Duration 02/25/23 One Impairment Lacks HEP appropriate for her current level of function Short Term Goal (STG) Pt will be educated in use of proper breathwork for ADLs and transfers and bowel management. 12/11/22: Pt education and lengthy discussion of how to have Bowel movements. bowel movements without holding breath and discussed squatty potty. STG Duration 01/11/23 partially met : for bowel education Senior Care Goal (LTG) Pt will be educated in self care HEP of PF, core and hip strengthening ex's for her level of function at time of discharge from physical therapy. LTG Duration 02/25/23 Assessment Summary Assessment 77 yo female wtih urinary incontinence due to PF weakness with pelvic organ prolapse of Grade 1 cystocele and grade 1-2 rectocele. Pt had poor awareness of PF holding patterns and lack of relaxation after PF contractions. Pt takes ~5 sec to perform one cycle of PF contraction/relaxation. Pt has coordination of PF contraction with vaginal electrode pushing out on insertion, requiring towel roll to keep electrode in place. Physical Therapy Plan Frequency and Duration Frequency of Treatment 1x/Week Plan of Care Start Date 11/27/22 Plan of Care End Date 02/25/23 Next Visit Focus/Plan Next Note Type Treatment Note Next Visit Plan Note: Pt receiving monthly injections to keep multiple myeloma in remission. Next: Review proper hydration levels of 1/2 body wgt in oz' s. Education: coordination of proper breaths with ADLs, transfers, bowel management, body mechanics and exercise. PF contractions in isolation of substitute muscles. Ex: Trunk: rot L, SB R stretches & TA/core (rot) strengthening; Hip stretch (L AB, ?ER/IR-per ERNIE).
--- NOTE | 2023-01-12 14:15 | PT.OTN ---
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 Records indicate [facility] @ [facility], pt wears L knee brace-symptomatic DJD. PT-OP-B Current Condition Start: 11/20/22 17:09 Freq: Status: Active Protocol: Document 11/27/22 14:26 LRN (Rec: 11/27/22 19:16 LRN [id number]) Current Condition History of Current Condition Onset Date 04/2022 Current Complaints Feels something bulging in perineum, urinary leakage. History of Current Condition Pt has urinary incontinence and sometimes feels a bulge in her pelvic floor region. Pt reports she wears a maxipad due to large amount of urinary leakage which can result in wetting of underwear. She uses 1 maxi-pad daily. She is currently waiting for test results for possible UTI. Pt reports she leaks with activity/exercise, walking to toilet and a strong urge and can delay 11-30 minutes. She occasionally has a feeling of falling out. She reports drinking 4 glasses of fluid daily, 1-2 glasses of caffeinated and 0-1 alcoholic beverages daily. Her trigger is running water. Pt received Women's Health PT in [place] and will be returning to [place] in February. Pt is a resident of [place] who snow- birds on [facility] from Aug-February. Pt is taking medication to maintain remission of multiple myeloma for past 8 yrs, which causes her constipation. Pt receives medication injection 1x/month with constipation lasting one day. Prior Treatments and Tests Woman's Health Physical Therapy at [facility] in [place], [place] by Rebeca Hart, PT 07/04/22 to 08/15/22. Future Testing and Treatments Planned Pt is planning on continuing PT on her return to [place]. Treatment Goals Patient/Caregiver Goals Pt goal is to improve PF strength to decrease urinary leakage, learn ex's to prevent urinary leakage. Pt is agreeable to other goals of pt education in self care, hip mobility trunk/core stabilization. Personal Factors Other Personal Factors That May Effect Multiple myeloma injection 1x/ Therapy/Recovery month to keep CA in remission, L ERNIE, Hernia repair PT-OP-C Subjective Start: 11/20/22 17:09 Freq: Status: Active Protocol: Document 01/12/23 13:04 LRN (Rec: 01/12/23 13:53 LRN [id number]) OP-PT Subjective Patient Comments Patient Comments Has been practicing Kegels. Has UTI and having more pressure in abdomen, same pressure as when having a prolapse. [facility] for UTI. Feels leakage is better. PT-OP-I Pelvic Floor Start: 11/20/22 17:09 Freq: Status: Active Protocol: Document 11/27/22 14:26 LRN (Rec: 11/27/22 19:16 LRN [id number]) Pelvic Floor Assessment Urine Pelvic Floor Surgery No Urinary Symptoms Urge Sensation,Prolapse, Falling Out Feeling/Heavy Leakage Size Medium Leakage Cause Exercise,Lifting,Urge Leaks Per Day 1 Voiding Frequency 10x during the day Nocturia 3 Pads Used In 24 Hours 1 Urine Pad Type Maxi Pad Bowel Bowel Symptoms Constipation Other Bowel Symptoms Constipation when taking medication to keep multiple myoloma CA, now in remission. Bowel Movement Frequency 3-6 [place] Stool Chart Comments Stools 3 & 5 except type 1 with her medication 1x/month. Pelvic Clock Pelvic Clock 9-12 Atrophy Pelvic Clock Other Superficial PF muscles: poor to no contraction felt. Prolapse Cystocele Grade 1 Rectocele Grade 2 Contraction Ability Voluntary Contraction Weak Manual Muscle Testing Left 2 Manual Muscle Testing Right 3 Manual Muscle Testing Anterior 0 Manual Muscle Testing Posterior 3 Muscle Endurance (Seconds) 3 Number of Quick Contractions In 10 3 Seconds Comments Pelvic Floor Comments Pt able to hold a PF contraction 10 secs, but strength of contraction decreases after 3 secs. PT-OP-J Posture/Palpation/Skin Start: 11/20/22 17:09 Freq: Status: Active Protocol: Document 11/27/22 14:26 LRN (Rec: 11/27/22 19:16 LRN [id number]) Posture Evaluation Position Standing Head/C-Spine Posture Forward Head Shoulder Posture (R) Elevated Scapula Posture (R) Elevated Pelvis Posture Anteriorly Tilted Comments Posture Comments Slight C-curve of spine w/apex on R. Varus L lower leg. Low L PSIS, R innominate more anteriorly rotated than L. PT-OP-K Range of Motion Start: 11/20/22 17:09 Freq: Status: Active Protocol: Document 11/27/22 14:26 LRN (Rec: 11/27/22 19:16 LRN [id number]) Lumbar Spine Range of Motion Lumbar Spine Active Degrees Testing Position Standing Flexion 80 Extension 10 Rotation Left 20 Rotation Right 25 Lateral Flexion Left 10 Lateral Flexion Right 7 ROM Limitations Soft Tissue Tightness Hip Goniometric Range of Motion Hip Right Passive Testing Position Supine Abduction 27 Internal Rotation 35 External Rotation 35 Left Passive Testing Position Supine Abduction 20 Internal Rotation 15 External Rotation 30 Comments Hx of L ERNIE PT-OP-M Strength Start: 11/20/22 17:09 Freq: Status: Active Protocol: Document 11/27/22 14:26 LRN (Rec: 11/27/22 19:16 LRN [id number]) Hip Strength Hip Manual Muscle Testing Right Flexion (L2) 4+ Good+ Abduction 3+ Fair+ Adduction 5 Normal External Rotation 4+ Good+ Internal Rotation 5 Normal Left Flexion (L2) 3+ Fair+ Abduction 5 Normal Adduction 4 Good External Rotation 3+ Fair+ Internal Rotation 5 Normal PT-OP-Q Treatments Start: 11/20/22 17:09 Freq: Status: Active Protocol: Document 01/12/23 13:04 LRN (Rec: 01/12/23 13:53 LRN [id number]) Therapeutic Exercises Supine Exercises PF/Sup<>Sit Supine Exercise Name PF/Breath/Sup<>Sit Reps/Minutes 10' Comments Much verbal cuing/review needed before & after each step of transfer. PF contractions Supine Exercise Name Kegels holding 2-3 breaths/ relax 4-6 breaths, and for awareness of PF areas Equipment Used Wedge Reps/Minutes 15' Comments Much training education during ex for PF awareness of areas lilian Sitting Exercises PF/Sit<>Stand Sitting Exercise Name PF/Breath/Sit<>Stand Reps/Minutes 6' Comments Much verbal cuing/review needed before & after each step of transfer. Self-Care/Home Management Treatment Education Other Education Discussed fluid norms and recommendations, and modifications if needed due to fluid flows (pt to monitor fluid flow more closely). Reviewed PF contraction/rest times and variables. Reviewed positioning of elevated hips for PF strengthening and to try ex's in supine in this position. Reviewed hold times using # of breaths vs seconds. Discussed at length use of EMB biofeedback and for possible use of stim once infection cleared. Pt to ask oncologist for permission to use. PT-OP-T Assessment and Plan Start: 11/20/22 17:09 Freq: Status: Active Protocol: Document 01/12/23 13:04 LRN (Rec: 01/12/23 13:53 LRN [id number]) Physical Therapy Assessment Goals Four Impairment Decreased PF & core strength Impairment Strength: Pt not able to maintain stable core with MMT of LE's. PF weakness resulting in urinary incontinence requiring use of 1 maxi-pad daily. Short Term Goal (STG) Pt will be educated in HEP of trunk ROM ex's and PF ex's. STG Duration 01/11/23 Half-Way Goal (LTG) Pt will be able to demonstrate a stable core during MMT of LE's and will be able to decrease need for maxi-pad with a decrease in urinary leakage. LTG Duration 02/25/23 Three Impairment Assymetry of hip and trunk mobility Impairment Hip PROM (in deg's): ER: 30 left, 35 right; IR: 15 left, 35 right; AB: 20 left, 27 right. Trunk AROM (in deg's): Rot 20 left, 25 right; Sidebend 10 left, 7 right. Stock Saw Operator Goal (LTG) Improve symmetry of hip and trunk mobility with pt on a self care HEP of stretches and posture education. LTG Duration 02/25/23 Two Impairment Substitution of abdom, gluteal , & hip AD ms to perform a PF contraction. Short Term Goal (STG) Decrease use of associated abdominal/gluteal muscles and pt will be able to perform a PF contraction in abscence of substitute muscles. 01/12/23: Pt educated in PF contractions in isolation of substitute muscles. STG Duration 01/11/23 progressed 01/12/23 Stock Saw Operator Goal (LTG) Pt will demonstrate improved PF strength and endurance per SEMG biofeedback. LTG Duration 02/25/23 One Impairment Lacks HEP appropriate for her current level of function Short Term Goal (STG) Pt will be educated in use of proper breathwork for ADLs and transfers and bowel management. 12/11/22: Pt education and lengthy discussion of how to have Bowel movements. bowel movements without holding breath and discussed squatty potty. 01/12/23: Pt education in breathwork for transfers. STG Duration 01/11/23 partially met : transfers & previously bowel education Stock Saw Operator Goal (LTG) Pt will be educated in self care HEP of PF, core and hip strengthening ex's for her level of function at time of discharge from physical therapy. 01/12/23: Pt education in self care of proper hydration levels of 1/2 body wgt in oz's , and PF contractions in isolation of substitute muscles. LTG Duration 02/25/23 progressed 01/12/23 Assessment Summary Assessment 77 yo female with urinary incontinence due to PF weakness with pelvic organ prolapse of Grade 1 cystocele and grade 1-2 rectocele. Pt was able to gain awareness of PF muscles with PF contraction . She is able to isolate her PF contraction from substitute muscles if the contraction is submax. The pt automatically contracts w/substitute ms's after initial contraction. Pt had difficulty using breath's and PF contractions with transfers; therefore further assessment/training needed. Physical Therapy Plan Frequency and Duration Frequency of Treatment 1x/Week Plan of Care Start Date 11/27/22 Plan of Care End Date 02/25/23 Next Visit Focus/Plan Next Note Type Treatment Note Next Visit Plan Note: Pt receiving monthly injections to keep multiple myeloma in remission. Pt will be retuning to [place] in February. Next: Review proper breathwork for ADLs, and coordination of proper breaths with transfers. Assess pt's hydration levels w/output flows. Education: Coordination of proper breaths with ADLs/body mechanics and exercise. Ex: Trunk: rot L, SB R stretches & TA/core (rot) strengthening; Hip stretch (L AB, ?ER/IR-per ERNIE).
--- NOTE | 2023-01-22 18:43 | PT.OTN ---
Current Diagnoses Mixed incontinence (01/22/23) Cystocele, unspecified (01/22/23) Other female genital prolapse (01/22/23) Physical Therapy Treatment Note PT-OP-A Visit Information Start: 11/20/22 17:09 Freq: Status: Active Protocol: Document 01/22/23 13:04 LRN (Rec: 01/22/23 13:54 LRN [id number]) Out-Patient Physical Therapy Visit Information Visit Information Visit Type Treatment Note Visit Start Time 13:04 Visit Stop Time 13:52 Total Visit Minutes 50 Visit Number 5 Evaluation Information Evaluation Date 11/27/22 PT-OP-B Current Condition Start: 11/20/22 17:09 Freq: Status: Active Protocol: Document 11/27/22 14:26 LRN (Rec: 11/27/22 19:16 LRN [id number]) Current Condition History of Current Condition Onset Date 04/2022 Current Complaints Feels something bulging in perineum, urinary leakage. History of Current Condition Pt has urinary incontinence and sometimes feels a bulge in her pelvic floor region. Pt reports she wears a maxipad due to large amount of urinary leakage which can result in wetting of underwear. She uses 1 maxi-pad daily. She is currently waiting for test results for possible UTI. Pt reports she leaks with activity/exercise, walking to toilet and a strong urge and can delay 11-30 minutes. She occasionally has a feeling of falling out. She reports drinking 4 glasses of fluid daily, 1-2 glasses of caffeinated and 0-1 alcoholic beverages daily. Her trigger is running water. Pt received Women's Health PT in [place] and will be returning to [place] in February. Pt is a resident of [place] who snow- birds on [facility] from Aug-February. Pt is taking medication to maintain remission of multiple myeloma for past 8 yrs, which causes her constipation. Pt receives medication injection 1x/month with constipation lasting one day. Prior Treatments and Tests Woman's Health Physical Therapy at [facility] in [place], [place] by Rebeca Hart, PT 07/04/22 to 08/15/22. Future Testing and Treatments Planned Pt is planning on continuing PT on her return to [place]. Treatment Goals Patient/Caregiver Goals Pt goal is to improve PF strength to decrease urinary leakage, learn ex's to prevent urinary leakage. Pt is agreeable to other goals of pt education in self care, hip mobility trunk/core stabilization. Personal Factors Other Personal Factors That May Effect Multiple myeloma injection 1x/ Therapy/Recovery month to keep CA in remission, L ERNIE, Hernia repair PT-OP-C Subjective Start: 11/20/22 17:09 Freq: Status: Active Protocol: Document 01/22/23 13:04 LRN (Rec: 01/22/23 13:54 LRN [id number]) OP-PT Subjective Patient Comments Patient Comments No changes. PT-OP-I Pelvic Floor Start: 11/20/22 17:09 Freq: Status: Active Protocol: Document 11/27/22 14:26 LRN (Rec: 11/27/22 19:16 LRN [id number]) Pelvic Floor Assessment Urine Pelvic Floor Surgery No Urinary Symptoms Urge Sensation,Prolapse, Falling Out Feeling/Heavy Leakage Size Medium Leakage Cause Exercise,Lifting,Urge Leaks Per Day 1 Voiding Frequency 10x during the day Nocturia 3 Pads Used In 24 Hours 1 Urine Pad Type Maxi Pad Bowel Bowel Symptoms Constipation Other Bowel Symptoms Constipation when taking medication to keep multiple myoloma CA, now in remission. Bowel Movement Frequency 3-6 [place] Stool Chart Comments Stools 3 & 5 except type 1 with her medication 1x/month. Pelvic Clock Pelvic Clock 9-12 Atrophy Pelvic Clock Other Superficial PF muscles: poor to no contraction felt. Prolapse Cystocele Grade 1 Rectocele Grade 2 Contraction Ability Voluntary Contraction Weak Manual Muscle Testing Left 2 Manual Muscle Testing Right 3 Manual Muscle Testing Anterior 0 Manual Muscle Testing Posterior 3 Muscle Endurance (Seconds) 3 Number of Quick Contractions In 10 3 Seconds Comments Pelvic Floor Comments Pt able to hold a PF contraction 10 secs, but strength of contraction decreases after 3 secs. PT-OP-J Posture/Palpation/Skin Start: 11/20/22 17:09 Freq: Status: Active Protocol: Document 11/27/22 14:26 LRN (Rec: 11/27/22 19:16 LRN [id number]) Posture Evaluation Position Standing Head/C-Spine Posture Forward Head Shoulder Posture (R) Elevated Scapula Posture (R) Elevated Pelvis Posture Anteriorly Tilted Comments Posture Comments Slight C-curve of spine w/apex on R. Varus L lower leg. Low L PSIS, R innominate more anteriorly rotated than L. PT-OP-K Range of Motion Start: 11/20/22 17:09 Freq: Status: Active Protocol: Document 11/27/22 14:26 LRN (Rec: 11/27/22 19:16 LRN [id number]) Lumbar Spine Range of Motion Lumbar Spine Active Degrees Testing Position Standing Flexion 80 Extension 10 Rotation Left 20 Rotation Right 25 Lateral Flexion Left 10 Lateral Flexion Right 7 ROM Limitations Soft Tissue Tightness Hip Goniometric Range of Motion Hip Right Passive Testing Position Supine Abduction 27 Internal Rotation 35 External Rotation 35 Left Passive Testing Position Supine Abduction 20 Internal Rotation 15 External Rotation 30 Comments Hx of L ERNIE PT-OP-M Strength Start: 11/20/22 17:09 Freq: Status: Active Protocol: Document 11/27/22 14:26 LRN (Rec: 11/27/22 19:16 LRN [id number]) Hip Strength Hip Manual Muscle Testing Right Flexion (L2) 4+ Good+ Abduction 3+ Fair+ Adduction 5 Normal External Rotation 4+ Good+ Internal Rotation 5 Normal Left Flexion (L2) 3+ Fair+ Abduction 5 Normal Adduction 4 Good External Rotation 3+ Fair+ Internal Rotation 5 Normal PT-OP-Q Treatments Start: 11/20/22 17:09 Freq: Status: Active Protocol: Document 01/22/23 13:04 LRN (Rec: 01/22/23 13:54 LRN [id number]) Therapeutic Exercises Supine Exercises Piriformis stretch Supine Exercise Name Knee to opp shldr, w/ankle pumps, ankle IV/EV, toe mvmts x 10 each Side bilateral Reps/Minutes 10x each movement holding stretch Fig 4 stretch Supine Exercise Name Fig 4 stretch Side bilateral Equipment Used Wedge, Bolster Reps/Minutes Hold through 3 breaths x 6 PF/LE Roll in/outs/breath Supine Exercise Name PF/LE Roll in/out/breath, w/o and with TB/towel roll Equipment Used Wedge Bolster, L1 TB, hand towel roll Reps/Minutes 15' Comments Much phy & v cuing to start. Continued v cuing w/resistance PF/Sup<>Sit Supine Exercise Name PF/Breath/Sup<>Sit Reps/Minutes 6' Comments Much verbal cuing/review needed before & after each step of transfer. Sitting Exercises PF/Sit<>Stand Sitting Exercise Name PF/Breath/Sit<>Stand Reps/Minutes 6' Comments Verbal cuing/review needed before & after each step of transfer. Self-Care/Home Management Treatment Education Other Education Reviewed proper hydration levels (1/2 body wgt in oz's) of 66 oz's of proper fluids. Activities Self-Care/Home Management Activities Issued & reviewed HEP: LE Roll in/out with TBand/Towel roll and breathing. Issued Lev1 TB for exercise. PT-OP-T Assessment and Plan Start: 11/20/22 17:09 Freq: Status: Active Protocol: Document 01/22/23 13:04 LRN (Rec: 01/22/23 13:54 LRN [id number]) Physical Therapy Assessment Goals Four Impairment Decreased PF & core strength Impairment Strength: Pt not able to maintain stable core with MMT of LE's. PF weakness resulting in urinary incontinence requiring use of 1 maxi-pad daily. Short Term Goal (STG) Pt will be educated in HEP of trunk ROM ex's and PF ex's. 01/22/23: HEP: PF strengthening: LE roll in/out w/TB & towel roll. STG Duration 01/11/23 progressed 01/22/23 [employer] Goal (LTG) Pt will be able to demonstrate a stable core during MMT of LE's and will be able to decrease need for maxi-pad with a decrease in urinary leakage. LTG Duration 02/25/23 Three Impairment Assymetry of hip and trunk mobility Impairment Note: S/P L ERNIE. Hip PROM (in deg's): ER: 30 left, 35 right; IR: 15 left, 35 right; AB: 20 left, 27 right. Trunk AROM (in deg's): Rot 20 left, 25 right; Sidebend 10 left, 7 right. Care Home Goal (LTG) Improve symmetry of hip and trunk mobility with pt on a self care HEP of stretches and posture education. LTG Duration 02/25/23 Two Impairment Substitution of abdom, gluteal , & hip AD ms to perform a PF contraction. Short Term Goal (STG) Decrease use of associated abdominal/gluteal muscles and pt will be able to perform a PF contraction in abscence of substitute muscles. 01/12/23: Pt educated in PF contractions in isolation of substitute muscles. STG Duration 01/11/23 progressed 01/12/23 Care Home Goal (LTG) Pt will demonstrate improved PF strength and endurance per SEMG biofeedback. LTG Duration 02/25/23 One Impairment Lacks HEP appropriate for her current level of function Short Term Goal (STG) Pt will be educated in use of proper breathwork for ADLs and transfers and bowel management. 12/11/22: Pt education and lengthy discussion of how to have Bowel movements. bowel movements without holding breath and discussed squatty potty. 01/12/23: Pt education in breathwork for transfers. STG Duration 01/11/23 partially met : transfers & previously bowel education Care Home Goal (LTG) Pt will be educated in self care HEP of PF, core and hip strengthening ex's for her level of function at time of discharge from physical therapy. 01/12/23: Pt education in self care of proper hydration levels of 1/2 body wgt in oz's , and PF contractions in isolation of substitute muscles. 01/22/23: HEP: Hip ER (fig 4)/ IR (knee to opp shoulder) stretch. LTG Duration 02/25/23 progressed 01/22/23 Progress Towards Goals Progress Comments Progressed HEP. Assessment Summary Assessment Pt has improved awareness of PF contraction after today's ex's and has fair abiltiy to coodinate PF contractions with transfers. She may need further training doing PF contraction w/transfers and breathing. Physical Therapy Plan Frequency and Duration Frequency of Treatment 1x/Week Plan of Care Start Date 11/27/22 Plan of Care End Date 02/25/23 Next Visit Focus/Plan Next Note Type Treatment Note Next Visit Plan Note: Pt receiving monthly injections to keep multiple myeloma in remission. Pt will be retuning to [place] in February. Next: Review proper breathwork for ADLs, and coordination of proper breaths with transfers. Assess pt's hydration levels w/output flows. Review HEP hip stretches w/ERNIE precautions - probable hx of anterior ERNIE). Add core stab ex's. Education: Coordination of proper breaths with ADLs/body mechanics and exercise. Ex: Trunk: rot L, SB R stretches & TA/core (rot) strengthening; Hip stretch (L AB, ?ER/IR-per ERNIE).
--- NOTE | 2023-01-29 17:03 | PT-OP ANOTE ---
Pt cx due to illness.
--- NOTE | 2023-02-09 15:05 | PT.OTN ---
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 Records indicate [facility], pt wears L knee brace-symptomatic DJD. Pt and DA thinks she had an anterior ERNIE, but w/o restrictions. PT-OP-B Current Condition Start: 11/20/22 17:09 Freq: Status: Active Protocol: Document 11/27/22 14:26 LRN (Rec: 11/27/22 19:16 LRN [id number]) Current Condition History of Current Condition Onset Date 04/2022 Current Complaints Feels something bulging in perineum, urinary leakage. History of Current Condition Pt has urinary incontinence and sometimes feels a bulge in her pelvic floor region. Pt reports she wears a maxipad due to large amount of urinary leakage which can result in wetting of underwear. She uses 1 maxi-pad daily. She is currently waiting for test results for possible UTI. Pt reports she leaks with activity/exercise, walking to toilet and a strong urge and can delay 11-30 minutes. She occasionally has a feeling of falling out. She reports drinking 4 glasses of fluid daily, 1-2 glasses of caffeinated and 0-1 alcoholic beverages daily. Her trigger is running water. Pt received Women's Health PT in [place] and will be returning to [place] in February. Pt is a resident of [place] who snow- birds on [facility] from Aug-February. Pt is taking medication to maintain remission of multiple myeloma for past 8 yrs, which causes her constipation. Pt receives medication injection 1x/month with constipation lasting one day. Prior Treatments and Tests Woman's Health Physical Therapy at [facility] in [place], [place] by Rebeca Hart, PT 07/04/22 to 08/15/22. Future Testing and Treatments Planned Pt is planning on continuing PT on her return to [place]. Treatment Goals Patient/Caregiver Goals Pt goal is to improve PF strength to decrease urinary leakage, learn ex's to prevent urinary leakage. Pt is agreeable to other goals of pt education in self care, hip mobility trunk/core stabilization. Personal Factors Other Personal Factors That May Effect Multiple myeloma injection 1x/ Therapy/Recovery month to keep CA in remission, L ERNIE, Hernia repair PT-OP-C Subjective Start: 11/20/22 17:09 Freq: Status: Active Protocol: Document 02/09/23 13:51 LRN (Rec: 02/09/23 14:34 LRN [id number]) OP-PT Subjective Patient Comments Patient Comments Has been sick and doing a lot of coughing. Doesn't think she is any worse. PT-OP-I Pelvic Floor Start: 11/20/22 17:09 Freq: Status: Active Protocol: Document 11/27/22 14:26 LRN (Rec: 11/27/22 19:16 LRN [id number]) Pelvic Floor Assessment Urine Pelvic Floor Surgery No Urinary Symptoms Urge Sensation,Prolapse, Falling Out Feeling/Heavy Leakage Size Medium Leakage Cause Exercise,Lifting,Urge Leaks Per Day 1 Voiding Frequency 10x during the day Nocturia 3 Pads Used In 24 Hours 1 Urine Pad Type Maxi Pad Bowel Bowel Symptoms Constipation Other Bowel Symptoms Constipation when taking medication to keep multiple myoloma CA, now in remission. Bowel Movement Frequency 3-6 [place] Stool Chart Comments Stools 3 & 5 except type 1 with her medication 1x/month. Pelvic Clock Pelvic Clock 9-12 Atrophy Pelvic Clock Other Superficial PF muscles: poor to no contraction felt. Prolapse Cystocele Grade 1 Rectocele Grade 2 Contraction Ability Voluntary Contraction Weak Manual Muscle Testing Left 2 Manual Muscle Testing Right 3 Manual Muscle Testing Anterior 0 Manual Muscle Testing Posterior 3 Muscle Endurance (Seconds) 3 Number of Quick Contractions In 10 3 Seconds Comments Pelvic Floor Comments Pt able to hold a PF contraction 10 secs, but strength of contraction decreases after 3 secs. PT-OP-J Posture/Palpation/Skin Start: 11/20/22 17:09 Freq: Status: Active Protocol: Document 11/27/22 14:26 LRN (Rec: 11/27/22 19:16 LRN [id number]) Posture Evaluation Position Standing Head/C-Spine Posture Forward Head Shoulder Posture (R) Elevated Scapula Posture (R) Elevated Pelvis Posture Anteriorly Tilted Comments Posture Comments Slight C-curve of spine w/[place] on R. Varus L lower leg. Low L PSIS, R innominate more anteriorly rotated than L. PT-OP-K Range of Motion Start: 11/20/22 17:09 Freq: Status: Active Protocol: Document 11/27/22 14:26 LRN (Rec: 11/27/22 19:16 LRN [id number]) Lumbar Spine Range of Motion Lumbar Spine Active Degrees Testing Position Standing Flexion 80 Extension 10 Rotation Left 20 Rotation Right 25 Lateral Flexion Left 10 Lateral Flexion Right 7 ROM Limitations Soft Tissue Tightness Hip Goniometric Range of Motion Hip Right Passive Testing Position Supine Abduction 27 Internal Rotation 35 External Rotation 35 Left Passive Testing Position Supine Abduction 20 Internal Rotation 15 External Rotation 30 Comments Hx of L ERNIE PT-OP-M Strength Start: 11/20/22 17:09 Freq: Status: Active Protocol: Document 11/27/22 14:26 LRN (Rec: 11/27/22 19:16 LRN [id number]) Hip Strength Hip Manual Muscle Testing Right Flexion (L2) 4+ Good+ Abduction 3+ Fair+ Adduction 5 Normal External Rotation 4+ Good+ Internal Rotation 5 Normal Left Flexion (L2) 3+ Fair+ Abduction 5 Normal Adduction 4 Good External Rotation 3+ Fair+ Internal Rotation 5 Normal PT-OP-Q Treatments Start: 11/20/22 17:09 Freq: Status: Active Protocol: Document 02/09/23 13:51 LRN (Rec: 02/09/23 14:34 LRN [id number]) Therapeutic Exercises Supine Exercises Fig 4 stretch Supine Exercise Name Fig 4 stretch Side bilateral Equipment Used Wedge, Bolster Reps/Minutes Hold through 3 breaths x 6 PF/LE Roll in/outs/breath Supine Exercise Name PF/LE Roll in/out/breath, w/o and with TB/towel roll Equipment Used Wedge Bolster, L1 TB, hand towel roll Reps/Minutes 13' Comments Much phy & v cuing to start. Continued v cuing w/resistance PF/Sup<>Sit Supine Exercise Name PF/Breath/Sup<>Sit Reps/Minutes 8' Comments Much verbal cuing/review needed before & after each step of transfer. Sitting Exercises Trunk L rot stretch Sitting Exercise Name Trunk L rot stretch Comments Extra time taken for training and for max tolerated stretch Trunk R SB stretch Sitting Exercise Name Trunk R SB stretch Reps/Minutes 10 SH x 10 Comments Extra time taken for training and for max tolerated stretch PF/Sit<>Stand Sitting Exercise Name PF/Breath/Sit<>Stand Reps/Minutes 6' Comments Verbal cuing/review needed before & after each step of transfer. Self-Care/Home Management Treatment Education Patient Education Home Exercise Program Other Education Discussed pt's previously issued HEP for review and answer of questions regarding exercises. Activities Self-Care/Home Management Activities Issued & reviewed HEP: Sitting trunk L rot, and R SB stretch, proper transfers sit< >supine, and Proper body mechanics for ADLs. PT-OP-T Assessment and Plan Start: 11/20/22 17:09 Freq: Status: Active Protocol: Document 02/09/23 13:51 LRN (Rec: 02/09/23 14:34 LRN [id number]) Physical Therapy Assessment Goals Four Impairment Decreased PF & core strength Impairment Strength: Pt not able to maintain stable core with MMT of LE's. PF weakness resulting in urinary incontinence requiring use of 1 maxi-pad daily. Short Term Goal (STG) Pt will be educated in HEP of trunk ROM ex's and PF ex's. 01/22/23: HEP: PF strengthening: LE roll in/out w/TB & towel roll. 02/09/23: HEP: trunk ROM ex ( SB, rot). STG Duration 01/11/23 progressed 02/09/23 Detention Goal (LTG) Pt will be able to demonstrate a stable core during MMT of LE's and will be able to decrease need for maxi-pad with a decrease in urinary leakage. LTG Duration 02/25/23 Three Impairment Assymetry of hip and trunk mobility Impairment Note: S/P L ERNIE. Hip PROM (in deg's): ER: 30 left, 35 right; IR: 15 left, 35 right; AB: 20 left, 27 right. Trunk AROM (in deg's): Rot 20 left, 25 right; Sidebend 10 left, 7 right. [employer] Operator Goal (LTG) Improve symmetry of hip and trunk mobility with pt on a self care HEP of stretches and posture education. 02/09/23: Pt is on a HEP of hip and trunk mobility ex's appropriate for her condition. LTG Duration 02/25/23 progressed 02/09/23. Two Impairment Substitution of abdom, gluteal , & hip AD ms to perform a PF contraction. Short Term Goal (STG) Decrease use of associated abdominal/gluteal muscles and pt will be able to perform a PF contraction in absence of substitute muscles. 01/12/23: Pt educated in PF contractions in isolation of substitute muscles. STG Duration 01/11/23 progressed 01/12/23 [employer] Operator Goal (LTG) Pt will demonstrate improved PF strength and endurance per SEMG biofeedback. LTG Duration 02/25/23 One Impairment Lacks HEP appropriate for her current level of function Short Term Goal (STG) Pt will be educated in use of proper breathwork for ADLs and transfers and bowel management. 12/11/22: Pt education and lengthy discussion of how to have Bowel movements. bowel movements without holding breath and discussed squatty potty. 01/12/23: Pt education in breathwork for transfers. 02/09/23: Pt educated in coordination of proper breaths with ADLs/body mechanics STG Duration 01/11/23 (02/09/23: MET GOAL) Detention Goal (LTG) Pt will be educated in self care HEP of PF, core and hip strengthening ex's for her level of function at time of discharge from physical therapy. 01/12/23: Pt education in self care of proper hydration levels of 1/2 body wgt in oz's , and PF contractions in isolation of substitute muscles. 01/22/23: HEP: Hip ER (fig 4)/ IR (knee to opp shoulder) stretch. 02/09/23: HEP: Trunk L rot, R SB. Proper sit<>sup training , and PF roll in/out strengthening reviewed. LTG Duration 02/25/23 progressed 02/09/23 Assessment Summary Assessment 77 yo female with urinary incontinence due to PF weakness with pelvic organ prolapse of Grade 1 cystocele and grade 1-2 rectocele. Pt returns after 3 weeks due to illness/sickness. The pt indicates no worsening of symptoms and has been doing her HEP, although she had some confusion with ex that was cleared up to day after review . The pt has been good at incorporating PF contractions with daily activities, but is not yet well coordinated with LE roll in/out ex's. One more review will be good to have confidence with pt being placed on HEP. Physical Therapy Plan Frequency and Duration Frequency of Treatment 1x/Week Plan of Care Start Date 11/27/22 Plan of Care End Date 02/25/23 Next Visit Focus/Plan Next Note Type Discharge Summary Next Visit Plan Note: Pt receiving monthly injections to keep multiple myeloma in remission. Pt returning to [place] after next visit. Quick check on adherence to proper breathwork for ADLs ( discuss with exercise), & w/ transfers. Per SEMG biofeedback, assess PF strength and endurance (LTG #2) Review HEP hip stretches for probable anter ERNIE. Check ROM of hip rot/AB and trunk SB rot (LTG #3). Assess progress to goal #4. Add core stab ex's: TA/core Rot strengthening; Hip stretch (L AB). Hold ER/ IR stretch, due to unfamiliar type of ERNIE surgery pt has had .
--- NOTE | 2023-02-26 16:59 | PT.OTN ---
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 Records indicate [facility], pt wears L knee brace-symptomatic DJD. Pt and DA thinks she had an anterior ERNIE, but w/o restrictions. PT-OP-B Current Condition Start: 11/20/22 17:09 Freq: Status: Active Protocol: Document 11/27/22 14:26 LRN (Rec: 11/27/22 19:16 LRN [id number]) Current Condition History of Current Condition Onset Date 04/2022 Current Complaints Feels something bulging in perineum, urinary leakage. History of Current Condition Pt has urinary incontinence and sometimes feels a bulge in her pelvic floor region. Pt reports she wears a maxipad due to large amount of urinary leakage which can result in wetting of underwear. She uses 1 maxi-pad daily. She is currently waiting for test results for possible UTI. Pt reports she leaks with activity/exercise, walking to toilet and a strong urge and can delay 11-30 minutes. She occasionally has a feeling of falling out. She reports drinking 4 glasses of fluid daily, 1-2 glasses of caffeinated and 0-1 alcoholic beverages daily. Her trigger is running water. Pt received [facility] in [place] and will be returning to [place] in February. Pt is a resident of [place] who snow- birds on [facility] from Aug-February. Pt is taking medication to maintain remission of multiple myeloma for past 8 yrs, which causes her constipation. Pt receives medication injection 1x/month with constipation lasting one day. Prior Treatments and Tests [facility] at [facility] in [place], [place] by Rebeca Hart, PT 07/04/22 to 08/15/22. Future Testing and Treatments Planned Pt is planning on continuing PT on her return to [place]. Treatment Goals Patient/Caregiver Goals Pt goal is to improve PF strength to decrease urinary leakage, learn ex's to prevent urinary leakage. Pt is agreeable to other goals of pt education in self care, hip mobility trunk/core stabilization. Personal Factors Other Personal Factors That May Effect Multiple myeloma injection 1x/ Therapy/Recovery month to keep CA in remission, L ERNIE, Hernia repair PT-OP-C Subjective Start: 11/20/22 17:09 Freq: Status: Active Protocol: Document 02/26/23 15:24 LRN (Rec: 02/26/23 16:59 LRN [id number]) OP-PT Subjective Patient Comments Patient Comments Overall doing better, more able to do the Kegel ex like it shoulde be and able to do it easier and can feel what is doing. Has had trauma to tailbone. Bulge feeling when sitting down is not as frequent, random, not all the time anymore. PT-OP-I Pelvic Floor Start: 11/20/22 17:09 Freq: Status: Active Protocol: Document 02/26/23 15:24 LRN (Rec: 02/26/23 16:59 LRN [id number]) Pelvic Floor Assessment SEMG (uV) Baseline 1.2 Quick Contraction 4.6 10 Second Contraction 3.9 Recruitment Pattern Fair Relaxation Fair Holding Fair Stability of Hold Fair SEMG Stability of Rest Fair Comments Pelvic Floor Comments Pt able to hold a PF contraction 10 secs, but strength of contraction decreases after 2-3 secs. Quick Flicks (10 reps) w/o substitute ms: Isolating PF: Avg rest is: 1.9 uV's. Quick Flicks (10 reps) w/ substitute ms: Avg work is 4. 0 uV's Avg rest is 1.8 uV's. Long Holds (10 reps) w/o substitute ms: Isolating PF: Avg work is 3.9 uV's Avg rest is 0.6 uV's Long Holds (10 reps) w/ substitute ms: Isolating PF: Avg work is 4.4 uV's Avg rest is 1.0 uV's PT-OP-J Posture/Palpation/Skin Start: 11/20/22 17:09 Freq: Status: Active Protocol: Document 11/27/22 14:26 LRN (Rec: 11/27/22 19:16 LRN [id number]) Posture Evaluation Position Standing Head/C-Spine Posture Forward Head Shoulder Posture (R) Elevated Scapula Posture (R) Elevated Pelvis Posture Anteriorly Tilted Comments Posture Comments Slight C-curve of spine w/apex on R. Varus L lower leg. Low L PSIS, R innominate more anteriorly rotated than L. PT-OP-K Range of Motion Start: 11/20/22 17:09 Freq: Status: Active Protocol: Document 02/26/23 15:24 LRN (Rec: 02/26/23 16:59 LRN [id number]) Hip Goniometric Range of Motion Hip Right Passive Testing Position Supine Abduction 27 Internal Rotation 25 External Rotation 30 Left Passive Testing Position Supine Abduction 27 Internal Rotation 30 External Rotation 30 Comments Hx of L ERNIE PT-OP-M Strength Start: 11/20/22 17:09 Freq: Status: Active Protocol: Document 02/26/23 15:24 LRN (Rec: 02/26/23 16:59 LRN [id number]) Hip Strength Hip Manual Muscle Testing Right Comments Strength is generally 5/5. Left Extension (S1) 3 Fair Comments Strength is 5/5 except as indicated above. PT-OP-Q Treatments Start: 11/20/22 17:09 Freq: Status: Active Protocol: Document 02/26/23 15:24 LRN (Rec: 02/26/23 16:59 LRN [id number]) Therapeutic Exercises Supine Exercises Hip PROM Supine Exercise Name AB, ER, IR Side bilateral Reps/Minutes 10' PF/Sup<>Sit Supine Exercise Name PF/Breath/Sup<>Sit Reps/Minutes 1' Comments Much verbal cuing/review needed before & after each step of transfer. PF contractions Supine Exercise Name PF tightening in isolation/ wedge Equipment Used Wedge Reps/Minutes 9' Comments Much training education during ex for PF awareness of areas lilian Standing Exercises Hip AD stretch Standing Exercise Name Brief I/S of hip AD stretch ( Side lunge) Reps/Minutes 2' Neuro Re-Education Treatment Other Activities Vaginal EMG Details EMG neuro megan strengthening Reps/Duration 26' Self-Care/Home Management Treatment Education Patient Education Home Exercise Program Activities Self-Care/Home Management Activities Issued & reviewed HEP: Hip adductor stretch in standing. PT-OP-T Assessment and Plan Start: 11/20/22 17:09 Freq: Status: Active Protocol: Document 02/26/23 15:24 LRN (Rec: 02/26/23 16:59 LRN [id number]) Physical Therapy Assessment Goals Four Impairment Decreased PF & core strength Impairment Strength: Pt not able to maintain stable core with MMT of LE's. PF weakness resulting in urinary incontinence requiring use of 1 maxi-pad daily. Short Term Goal (STG) Pt will be educated in HEP of trunk ROM ex's and PF ex's. 01/22/23: HEP: PF strengthening: LE roll in/out w/TB & towel roll. 02/09/23: HEP: trunk ROM ex ( SB, rot). 02/26/23: See Goal #1 for PF ex's. STG Duration 01/11/23 (02/26/23: MET GOAL for current condition) [employer] Goal (LTG) Pt will be able to demonstrate a stable core during MMT of LE's and will be able to decrease need for maxi-pad with a decrease in urinary leakage. 02/26/23: Pt conts to wear maxi-pads for urinary leakage. Overall pt feels her urinary leakage is not as bad. LTG Duration 02/25/23 (02/26/23: NOT MET GOAL) Three Impairment Assymetry of hip and trunk mobility Impairment Note: S/P L ERNIE. Hip PROM (in deg's): ER: 30 left, 35 right; IR: 15 left, 35 right; AB: 20 left, 27 right. Trunk AROM (in deg's): Rot 20 left, 25 right; Sidebend 10 left, 7 right. [employer] Goal (LTG) Improve symmetry of hip and trunk mobility with pt on a self care HEP of stretches and posture education. 02/09/23: Pt is on a HEP of hip and trunk mobility ex's appropriate for her condition. 02/26/23: Hip AB is 27 deg's bilaterally, Hip IR is 25 deg' r R, 30 deg's L; Hip ER. Issued HEP: Hip adductor stretch in standing. LTG Duration 02/25/23 (02/26/23: MET GOAL) Two Impairment Substitution of abdom, gluteal , & hip AD ms to perform a PF contraction. Short Term Goal (STG) Decrease use of associated abdominal/gluteal muscles and pt will be able to perform a PF contraction in absence of substitute muscles. 01/12/23: Pt educated in PF contractions in isolation of substitute muscles. 01/26/23: Able to isolate PF muscle with self awareness palpation at TA & gluteals. STG Duration 01/11/23 progressed 02/26/23 [employer] Goal (LTG) Pt will demonstrate improved PF strength and endurance per SEMG biofeedback. 02/26/23: First EMG biofeedback education/ strengthening due to variable reasons. LTG Duration 02/25/23 (02/26/23: NOT MET GOAL) One Impairment Lacks HEP appropriate for her current level of function Short Term Goal (STG) Pt will be educated in use of proper breathwork for ADLs and transfers and bowel management. 12/11/22: Pt education and lengthy discussion of how to have Bowel movements. bowel movements without holding breath and discussed squatty potty. 01/12/23: Pt education in breathwork for transfers. 02/09/23: Pt educated in coordination of proper breaths with ADLs/body mechanics STG Duration 01/11/23 (02/09/23: MET GOAL) [employer] Goal (LTG) Pt will be educated in self care HEP of PF, core and hip strengthening ex's for her level of function at time of discharge from physical therapy. 01/12/23: Pt education in self care of proper hydration levels of 1/2 body wgt in oz's , and PF contractions in isolation of substitute muscles. 01/22/23: HEP: Hip ER (fig 4)/ IR (knee to opp shoulder) stretch. 02/09/23: HEP: Trunk L rot, R SB. Proper sit<>sup training , and PF roll in/out strengthening reviewed. 02/26/23: Kegels issued on first visit. LTG Duration 02/25/23 (02/26/23: MET GOAL ) Assessment Summary Assessment Pt being seen for PF rehab for urinary incontinence due to PF weakness with pelvic organ prolapse of Grade 1 cystocele and grade 1-2 rectocele. The pt has made some good progress with greater symmetry of hip mobility, improved core stability, and symptoms of prolapse reduced. PF strength via EMG biofeedback has not improved, but strength tested with substitute muscles (as on the initial test), may be weaker because of 10 reps performed with PF isolated before general PF strength was measured, both for Quick Flicks and Long Holds. Pt is no longer having chronic feeling of falling out of PF and is now feeling it is intermittent. She had one illness episode in which she was doing a lot of coughing, but did not experience worsening of her prolapse symptoms. The pt is moving back to [place] and will continue with her HEP and may seek further PF therapy when she returns; therefore the pt is being discharged to her HEP . Physical Therapy Plan Frequency and Duration Frequency of Treatment 1x/Week Plan of Care Start Date 11/27/22 Plan of Care End Date 02/25/23 Discharge Physical Therapy Discharge Comments Pt moving back to [place]; therefore pt is being discharged to her HEP. Thank you for your referral.
== END 2023-03-01 09:22 | disposition home or self-care (01) ==
LOC: PHYS 15:15
PROVIDERS: PCP Obstetrics & Gynecology Obstetrics; Visit Provider Obstetrics & Gynecology Obstetrics
DX: N81.89 Other female genital prolapse (principal); N81.10 Cystocele, unspecified; N39.46 Mixed incontinence
CPT/HCPCS: 97110; 97112; 97162; 97535